=== PATIENT | female | born 1940 | race Asian ===

== ENCOUNTER 2022-08-31 08:33 | Inpatient (IN) | payer MEDICARE, OTHER ==
[~2022-08-31] VITALS: Ht 157.5 cm; Wt 53.5 kg
--- NOTE | 2022-08-31 08:38 | NUR ---
BIB [facility] FROM [place], WORSENING SOB SINCE MIDNIGHT AND HAS BEEN HAVING HIGH BLOOD PRESSURE. PT HAS HX OF HTN AND RESPIRATORY FAILURE. ATTACHED TO MONITOR. AWAITING MD JONES.
--- NOTE | 2022-08-31 09:09 | NUR ---
IV ESTABLISHED L HAND 20G. CULTURES AND LABS COLLECTED AND SENT. SALINE LOCK PLACED.
[2022-08-31] MEDS ORDERED: hydrALAZINE HCL IV 20 MG VIAL ONE (09:29)
[2022-08-31] MEDS ORDERED: hydrALAZINE HCL IV 20 MG VIAL IV ONE (09:30)
[2022-08-31 09:34] LABS: BASOPHILS # (AUTO) 0.1 K/uL (0.0-0.2); EOSINOPHILS % (AUTO) 1.5 % (0.0-6.0); HEMATOCRIT 29 % (33-45); HEMOGLOBIN 9.4 g/dL (11.5-14.8); LYMPHOCYTES # (AUTO) 0.9 K/uL (0.8-4.8); LYMPHOCYTES % (AUTO) 15.3 % (20.0-44.0); MEAN CORPUSCULAR HGB CONC 33 g/dl (31.0-36.0); MEAN CORPUSCULAR VOLUME 99 fL (82-100); MONOCYTES # (AUTO) 0.5 K/uL (0.1-1.30); MONOCYTES % (AUTO) 8.5 % (2.0-12.0); NEUTROPHILS # (AUTO) 4.2 K/uL (1.8-8.9); NEUTROPHILS % (AUTO) 73.7 % (43.0-81.0); PLATELET COUNT (AUTO) 198 K/uL (150-450); RED BLOOD CELL COUNT(AUTO) 2.91 MIL/uL (4.0-5.2); WHITE BLOOD COUNT (AUTO) 5.7 K/uL (4.3-11.0)
[2022-08-31 09:36] LABS: CALCIUM, SERUM 8.5 mg/dL (8.5-10.1); CARBON DIOXIDE 18 mmol/L (21-32); CHLORIDE 109 mmol/L (98-107); CREATININE 2.6 mg/dL (0.6-1.3); GLUCOSE 157 mg/dL (74-106); POTASSIUM 4.9 mmol/L (3.5-5.1); SODIUM SERUM 138 mmol/L (136-145); UREA NITROGEN, BLOOD 67 mg/dL (7-18)
[2022-08-31 09:58] LABS: ALANINE AMINOTRANSFERASE 17 U/L (12-78); ALBUMIN 2.6 g/dL (3.4-5.0); ALKALINE PHOSPHATASE 49 U/L (46-116); ASPARTATE AMINOTRANSFERASE 36 U/L (15-37); BILIRUBIN,DIRECT 0.1 mg/dL (0.0-0.2); BILIRUBIN,TOTAL 0.3 mg/dL (0.2-1.0); TOTAL PROTEIN, SERUM 6.3 g/dL (6.4-8.2)
--- NOTE | 2022-08-31 11:20 | NUR ---
INPATIENT MD AT BEDSIDE FOR EVAL
--- NOTE | 2022-08-31 12:05 | NUR ---
GOT BED 320-2 ADMITTING INFORMED.
--- NOTE | 2022-08-31 12:23 | NUR ---
RN NOTES RECEIVED REPORT FROM JUAN LUIS YANES RN
--- NOTE | 2022-08-31 12:23 | NUR ---
HANDOFF REPORT GIVEN TO GISEL ZHU FOR INPATIENT SERVICES.
[2022-08-31] MEDS ORDERED: ONDANSETRON HCL/PF 4 MG/2 ML VIAL IVP PRN (13:00)
[2022-08-31] MEDS ORDERED: MAG HYDROX/AL HYDROX/SIMETH 30 ML UDC PO PRN (13:00)
[2022-08-31] MEDS ORDERED: Z GUARD REMEDY 4 OZ OINT TP PRN (13:00)
[2022-08-31] MEDS ORDERED: MAGNESIUM HYDROXIDE 30 ML UDC PO PRN (13:00)
[2022-08-31] MEDS ORDERED: ACETAMINOPHEN 325 MG TABLET PO PRN (13:00)
[2022-08-31] MEDS ORDERED: FUROSEMIDE 20 MG/2 ML VIAL IV SCH (13:00)
--- NOTE | 2022-08-31 13:50 | NUR ---
BOX CAR BRACERMILLING/POLISHING OPERATOR NOTES PT ARRIVED VIA GURNEY AROUND 1340./ ALERT/ORIENTED X3, DENIES PAIN. ON O2 VIA NC @3L/MIN FOR SUPPORT. IV ACCESS ON LEFT HAND #20G SL, INTACT AND PATENT. NO SOB OR DISTRESS NOTED. SKIN INTACT. ALL DELONGINGS CHECKED AND RECONCILED. TFALL SAFETY MEASURES IN PLACED. BED LOCKED IN LOWEST POSITION, SIDE RAILS UP X2, CALL LIGHT WITHIN REACH. WILL CONTINUE TO MONITOR.
[2022-08-31] MEDS ORDERED: BUMETANIDE INJ 8 MG in IV NS 0.9% 48 ML IV ONE (14:00)
--- NOTE | 2022-08-31 14:00 | NUR ---
PT TRANSFERED Q/ ACLS PROTOCAL. PT REMAINED STABLE THROUGHT TRANSPORT. BEDSIDE NURSE PRESENT AT TIME OF TRANSFER.
--- NOTE | 2022-08-31 14:10 | NUR ---
RN NOTES RECEIVED CRITICAL LAB REPORT ON PT, TROP LEVEL [id number] FROM CHANTE MICHAEL.
[2022-08-31 14:22] LABS: THYROID STIMULATING HORMONE 1.408 uIU/mL (0.358-3.74)
[2022-08-31] MEDS: ATORVASTATIN 10 MG TABLET PO SCH (14:23)
[2022-08-31] MEDS: ASPIRIN 81 MG TAB.CHEW PO SCH (14:23)
[2022-08-31] MEDS ORDERED: HEPARIN SODIUM, PORCINE 5000 UNITS/1 ML VIAL IV ONE (14:30)
[2022-08-31] MEDS: HEPARIN INFUSION/D5W 500 ML IV PRN (15:00)
--- NOTE | 2022-08-31 15:00 | NUR ---
RN NOTES STARTED HEPARIN DRIP ON ACS PROTOCOL PER MD ORDER. BOLUS 3500 UNITS IV AND 750 UNITS HOURLY MAINTENANCE DOSE. NO SYMPTOMS OF BLEEDING. PT/PTT VERIFIED. WILL ORDER NEXT PT/PTT AT 2100. ORDER VERIFIED WITH AMBAR ZHU. WILL CONTINUE TO [facility].
[2022-08-31 16:00] VITALS: BP 163/80; TEMP 98; O2SAT 99
--- NOTE | 2022-08-31 18:51 | NUR ---
EXCAVATING SUPERVISOR CLOSING NOTES PT RESTING IN BED WITH DAUGHTER AT BEDSIDE. PT IS ALERT/ORIENTED X3, DENIES PAIN. ON O2 VIA NC @3L/MIN FOR SUPPORT. IV ACCESS ON LEFT HAND #20G SL, INTACT AND PATENT WITH BUMETANIDE RUNNING AT 10 ML/HR AND HEPARIN DRIP (ACS PROTOCOL) RUNNING AT 750 UNITS/HR ON RIGHT WRIST #22G. NO SOB OR DISTRESS NOTED. SKIN INTACT. ON TELE MONITOR SHOWING SINUS RHYTHM [address]. FALL SAFETY MEASURES IN PLACED. BED LOCKED IN LOWEST POSITION, SIDE RAILS UP X2, CALL LIGHT WITHIN REACH. WILL ENDORSE TO NEXT SHIFT.
[2022-08-31 19:00] VITALS: BP 166/75; TEMP 98.2; O2SAT 100
--- NOTE | 2022-08-31 19:30 | NUR ---
PACKAGING ASSOCIATE OPENING NOTE RECEIVED PATIENT IN BED, WITH HOB ELEVATED, ALERT AND ORIENTED X3, WITH DAUGHTER AT BEDSIDE. AFEBRILE AND NOT IN ANY FORM OF ACUTE DISTRESS. ON O2 INHALATION VIA NASAL CANNULA AT 3LPM. 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 WITH IV ACCES ON R WRIST 22G WITH ONGOING HEPARIN DRIP AT 15ML/HR. AND L HAND 20G RUNNING WITH BUMEX. SAFETY MEASURES IN PLACE. KEPT BED IN LOCKED AND IN LOW POSITION. SIDE RAILS UP X2. ADVISED TO USE THE CALL LIGHT WHEN IN NEED OF ASSISTANCE.
[2022-09-01] VITALS: BP 188/90; TEMP 98.2; O2SAT 98
[2022-09-01 05:56] LABS: BASOPHILS % (AUTO) 0.8 % (0.0-2.0); EOSINOPHILS % (AUTO) 3.3 % (0.0-6.0); HEMATOCRIT 28 % (33-45); HEMOGLOBIN 9.6 g/dL (11.5-14.8); LYMPHOCYTES # (AUTO) 1.3 K/uL (0.8-4.8); LYMPHOCYTES % (AUTO) 24.9 % (20.0-44.0); MEAN CORPUSCULAR HGB CONC 34 g/dl (31.0-36.0); MEAN CORPUSCULAR VOLUME 97 fL (82-100); MONOCYTES # (AUTO) 0.5 K/uL (0.1-1.30); MONOCYTES % (AUTO) 9.8 % (2.0-12.0); NEUTROPHILS # (AUTO) 3.2 K/uL (1.8-8.9); NEUTROPHILS % (AUTO) 61.2 % (43.0-81.0); PLATELET COUNT (AUTO) 194 K/uL (150-450); RED BLOOD CELL COUNT(AUTO) 2.91 MIL/uL (4.0-5.2); WHITE BLOOD COUNT (AUTO) 5.3 K/uL (4.3-11.0)
[2022-09-01 06:18] LABS: ALANINE AMINOTRANSFERASE 18 U/L (12-78); ALBUMIN 2.5 g/dL (3.4-5.0); ALKALINE PHOSPHATASE 51 U/L (46-116); ASPARTATE AMINOTRANSFERASE 61 U/L (15-37); BILIRUBIN,TOTAL 0.4 mg/dL (0.2-1.0); CARBON DIOXIDE 20 mmol/L (21-32); CHLORIDE 111 mmol/L (98-107); CREATININE 2.5 mg/dL (0.6-1.3); GLUCOSE 122 mg/dL (74-106); MAGNESIUM 1.8 mg/dL (1.8-2.4); PHOSPHORUS 5.8 mg/dL (2.5-4.9); POTASSIUM 4.5 mmol/L (3.5-5.1); SODIUM SERUM 144 mmol/L (136-145); TOTAL PROTEIN, SERUM 6.2 g/dL (6.4-8.2); UREA NITROGEN, BLOOD 60 mg/dL (7-18)
--- NOTE | 2022-09-01 06:30 | NUR ---
HUMAN RESOURCE ADVISER CLOSING NOTE PATIENT IN BED, WITH HOB ELEVATED, ASLEEP BUT EASY TO AROUSE AND RESPONSIVE. ALERT AND ORIENTED X3. AFEBRILE AND NOT IN ANY FORM OF ACUTE DISTRESS. ON O2 INHALATION VIA NASAL CANNULA AT 3LPM. ON TELE MONITORING WITH CURRENT READING OF SR 79. WITH LEFT BBB. WITH IV ACCES ON R WRIST 22G WITH ONGOING HEPARIN DRIP AT 15ML/HR. AND L HAND 20G-SL. MEDICATED ORDERED. MONITORED FOR ANY S/SX. OF BLEEDING. SAFETY MEASURES IN PLACE. KEPT BED IN LOCKED AND IN LOW POSITION. SIDE RAILS UP X2. ADVISED TO USE THE CALL LIGHT WHEN IN NEED OF ASSISTANCE. ALL NURSING NEEDS ATTENDED. ENDORSED TO INCOMING SHIFT FOR CONTINUITY OF CARE.
--- NOTE | 2022-09-01 06:50 | NUR ---
PROJECT CONTROLS SCHEDULER NOTE RECEIVED A CRITICAL RESULT FROM LAB RE. LATEST TROPONIN LEVEL OF PATIENT THAT WENT [place] FROM 17893 YESTERDAY TO . IMMEDIATELY NOTIFIED HOSPITALIST OCCUPATIONAL THERAPY SUPERVISOR DRAWING BOX TENDER DENISE AND AWAITING FOR RESPONSE. PATIENT'S LATEST PTT IS 46.1 AND IS CURRENTLY ON HEPARIN DRIP 750 UNITS/HR. ENDORSED TO INCOMING SHIFT FOR CONTINUITY OF CARE.
--- NOTE | 2022-09-01 07:32 | NUR ---
BRIDGE BUILDER OPENING NOTE RECEIVED PATIENT IN BED, WITH HOB ELEVATED, A/O X3, WITH DAUGHTER AT BEDSIDE. AFEBRILE AND NOT IN ANY FORM OF ACUTE DISTRESS. ON O2 INHALATION VIA NC AT 3LPM. ON TELE MONITORING WITH CURRENT READING OF SR 79 . WITH IV ACCES ON R WRIST 22G WITH ONGOING HEPARIN DRIP AT 15ML/HR . SAFETY MEASURES IN PLACE. KEPT BED IN LOCKED AND IN LOW POSITION. SIDE RAILS UP X2. ADVISED TO USE THE CALL LIGHT WHEN IN NEED OF ASSISTANCE. WILL CONTINUE TO MONITOR
[2022-09-01 08:00] VITALS: BP 136/94; TEMP 97.5; O2SAT 100
[2022-09-01] MEDS: ASPIRIN 81 MG TAB.CHEW PO SCH (09:30)
[2022-09-01] MEDS: ATORVASTATIN 10 MG TABLET PO SCH (09:30)
[2022-09-01] MEDS: hydrALAZINE HCL 50 MG TABLET PO SCH ×3 (09:34→17:18)
[2022-09-01] MEDS: NITROGLYCERIN 30 GM TUBE TP SCH ×2 (09:35→21:12)
[2022-09-01] MEDS: METOPROLOL TARTRATE 25 MG TABLET PO SCH ×2 (11:42→21:12)
[2022-09-01] MEDS ORDERED: MAGN400O6 PO (11:55)
[2022-09-01] MEDS ORDERED: AMLO5TAB4 PO (11:55)
[2022-09-01] MEDS ORDERED: SENN-261 PO (11:55)
[2022-09-01] MEDS ORDERED: DOCU100T2 PO (11:55)
[2022-09-01] MEDS ORDERED: PYRI25TA3 PO (11:55)
[2022-09-01] MEDS ORDERED: ASPI-1169 PO (11:55)
[2022-09-01] MEDS ORDERED: FERR325T23 PO (11:55)
[2022-09-01] MEDS ORDERED: FURO-144 PO (11:55)
[2022-09-01] MEDS ORDERED: ISON300T19 PO (11:55)
[2022-09-01] MEDS ORDERED: MIRT-90 PO (11:55)
[2022-09-01] MEDS ORDERED: ISOS120T13 PO (11:55)
[2022-09-01] MEDS ORDERED: CYAN10006 IM (11:55)
[2022-09-01] MEDS ORDERED: CETI-90 PO (11:55)
[2022-09-01] MEDS ORDERED: DOXA1TAB2 PO (11:55)
[2022-09-01] MEDS ORDERED: BISA10SU11 RC (11:55)
[2022-09-01] MEDS ORDERED: SITA50TA PO (11:55)
[2022-09-01] MEDS ORDERED: CARV25TA2 PO (11:55)
[2022-09-01] MEDS ORDERED: MEGE400O4 PO (11:55)
[2022-09-01] MEDS ORDERED: HYDR-4077 PO (11:55)
[2022-09-01] MEDS ORDERED: RIFA300C4 PO (11:55)
[2022-09-01] MEDS ORDERED: NA P133E RC (11:55)
[2022-09-01 16:00] VITALS: BP 162/80; TEMP 97.9; O2SAT 100
--- NOTE | 2022-09-01 19:36 | NUR ---
BEVELLER OPERATOR CLOSING NOTE PATIENT IN BED, WITH HOB ELEVATED, A/O X3, WITH DAUGHTER AT BEDSIDE. AFEBRILE AND NOT IN ANY FORM OF ACUTE DISTRESS. ON O2 INHALATION VIA NC AT 3LPM. ON TELE MONITORING WITH CURRENT READING OF SR 80 . WITH IV ACCES ON R WRIST 22G WITH ONGOING HEPARIN DRIP AT 15ML/HR . ALL DUE MEDS GIVEN ORDERED , SAFETY MEASURES IN PLACE. KEPT BED IN LOCKED AND IN LOW POSITION. SIDE RAILS UP X2. ADVISED TO USE THE CALL LIGHT WHEN IN NEED OF ASSISTANCE. ENDORSED TO NEXT SHIFT
--- NOTE | 2022-09-01 19:58 | NUR ---
COMPRESSOR REPAIRER OPENING NOTES RECEIVED PATIENT AWAKE SITTING IN BED, WITH DAUGHTER ON BEDSIDE. A/O X 3. ON NASAL CANNULA AT 2L, TOLERATING WELL WITH NO SIGNS OF RESPIRATORY DISTRESS. ON TELE MONITORING WITH A CURRENT READING OF SINUS RHYTHM WITH A HEART RATE OF 80. NO CARDIAC DISTRESS NOTED AT THIS TIME.ON HEPARIN DRIP AR R WRIST #22G.IVF ON L HAND #20G, INTACT AND PATENT. SAFETY MEASURES IN PLACE.WILL CONTINUE TO MONITOR.
[2022-09-01 20:00] VITALS: BP 176/78; TEMP 98.1; O2SAT 100
[2022-09-01] MEDS: HEPARIN INFUSION/D5W 500 ML IV PRN (22:06)
--- NOTE | 2022-09-01 22:30 | NUR ---
RN NOTE BP MEDICATIONS GIVEN ONE HOUR AGO BUT PT CURRENTLY REFUSING F/U BP. PT STATED SHE JUST WANTED TO SLEEP. MADE COMFORTABLE IN BED. ALL NEEDS MET AT THIS TIME.
[2022-09-01 23:55] LABS: BILIRUBIN,URINE NEGATIVE (NEGATIVE); COLOR,URINE YELLOW (YELLOW); LEUKOCYTE ESTERASE ,URINE NEGATIVE (NEGATIVE); NITRITE, URINE NEGATIVE (NEGATIVE); PROTEIN,URINE 3+ mg/dl (NEGATIVE); UGLUCOSE TRACE mg/dL (NEGATIVE); UROBILINOGEN,URINE 0.2 EU/dL (0.2)
[2022-09-02] VITALS: BP 138/61; TEMP 98.3; O2SAT 100
[2022-09-02 00:17] LABS: CREATININE, URINE 66.5 MG/DL (30.0-125.0)
[2022-09-02 00:31] LABS: BACTERIA,URINE Rare /HPF (None Seen); RBC,URINE 0-2 /HPF (0-2); SQUAMOUS EPITHELIAL CELL,UR Few /HPF (None Seen); WBC,URINE NONE SEEN /HPF (0-3)
[2022-09-02 01:21] LABS: EOSINOPHIL,URINE None Seen
[2022-09-02 01:22] LABS: YEAST,URINE Rare /HPF (None Seen)
[2022-09-02 04:00] VITALS: BP 160/69; TEMP 98; O2SAT 100
[2022-09-02 04:13] LABS: BASOPHILS # (AUTO) 0.1 K/uL (0.0-0.2); BASOPHILS % (AUTO) 1.9 % (0.0-2.0); EOSINOPHILS % (AUTO) 8.5 % (0.0-6.0); HEMATOCRIT 26 % (33-45); HEMOGLOBIN 8.8 g/dL (11.5-14.8); LYMPHOCYTES # (AUTO) 0.7 K/uL (0.8-4.8); LYMPHOCYTES % (AUTO) 17.7 % (20.0-44.0); MEAN CORPUSCULAR HGB CONC 34 g/dl (31.0-36.0); MEAN CORPUSCULAR VOLUME 96 fL (82-100); MONOCYTES # (AUTO) 0.3 K/uL (0.1-1.30); MONOCYTES % (AUTO) 7.6 % (2.0-12.0); NEUTROPHILS # (AUTO) 2.6 K/uL (1.8-8.9); NEUTROPHILS % (AUTO) 64.3 % (43.0-81.0); PLATELET COUNT (AUTO) 172 K/uL (150-450); RED BLOOD CELL COUNT(AUTO) 2.72 MIL/uL (4.0-5.2); WHITE BLOOD COUNT (AUTO) 4.1 K/uL (4.3-11.0)
[2022-09-02 04:34] LABS: ALANINE AMINOTRANSFERASE 19 U/L (12-78); ALBUMIN 2.3 g/dL (3.4-5.0); ALKALINE PHOSPHATASE 47 U/L (46-116); ASPARTATE AMINOTRANSFERASE 30 U/L (15-37); BILIRUBIN,TOTAL 0.2 mg/dL (0.2-1.0); CALCIUM, SERUM 8.8 mg/dL (8.5-10.1); CARBON DIOXIDE 20 mmol/L (21-32); CHLORIDE 109 mmol/L (98-107); CREATININE 2.3 mg/dL (0.6-1.3); GLUCOSE 118 mg/dL (74-106); MAGNESIUM 1.9 mg/dL (1.8-2.4); PHOSPHORUS 6.5 mg/dL (2.5-4.9); POTASSIUM 4.5 mmol/L (3.5-5.1); SODIUM SERUM 140 mmol/L (136-145); TOTAL PROTEIN, SERUM 5.7 g/dL (6.4-8.2); UREA NITROGEN, BLOOD 61 mg/dL (7-18)
--- NOTE | 2022-09-02 05:00 | NUR ---
RN NOTE PT LABS CAME BACK. PT 10.3 INR 0.98 AND PTT 46.6. PER HEPARIN PROTOCOL, NO CHANGES TO INFUSION. CHART UPDATED. CHARGE NURSE MANJINDER CASTILLO.
--- NOTE | 2022-09-02 06:45 | NUR ---
BAGGAGE SCREENER CLOSING NOTE PT AWAKE IN BED. A/O X 3 AND ABLE TO MAKE NEEDS KNOWN. PT ON O2 @ 2 LPM VIA NC, TOLERATING WELL. NO SOB OR S/S OF RESPIRATORY DISTRESS. BREATHING EVEN AND UNLABORED. ON EXTERNAL MEDICAL VIDEOGRAPHER READING SR 75 BPM. IV ACCESS R WRIST #22 AND L HAND #20G, RUNNING HEPARIN DRIP @ 750 UNITS/HOUR, INTACT AND PATENT. ALL DUE MEDS GIVEN ORDERED. KEPT CLEAN AND DRY. SAFETY PRECAUTIONS IN PLACE AT ALL TIMES. BED IN LOWEST LOCKED POSITION, HOB ELEVATED, SIDE RAILS UP X2, CALL LIGHT AND TABLE WITHIN REACH. ALL NEEDS MET AT THIS TIME AND WILL ENDORSE TO ONCOMING NURSE FOR PEYTON.
[2022-09-02 07:30] VITALS: BP 175/77; TEMP 98.6; O2SAT 100
--- NOTE | 2022-09-02 07:43 | NUR ---
DIRECTOR OF SECURITY OPENING NOTE Patient in bed, awake. A/O x 3, able to make needs known. On O2 at 2 LPM via NC, no SOB or s/s of distress noted. IV access on Right wrist infusing Heaprin drip at 750 U/hr and Left hand #20 SL, intact and patent. Safety precaution in place: bed in low, locked position; siderails up x 2; call light within reach. Will continue to monitor.
[2022-09-02] MEDS: ASPIRIN 81 MG TAB.CHEW PO SCH (08:09)
[2022-09-02] MEDS: hydrALAZINE HCL 50 MG TABLET PO SCH ×4 (08:09→17:36)
[2022-09-02] MEDS: ATORVASTATIN 10 MG TABLET PO SCH (08:09)
[2022-09-02] MEDS: METOPROLOL TARTRATE 25 MG TABLET PO SCH ×2 (08:09→21:07)
[2022-09-02] MEDS: NITROGLYCERIN 30 GM TUBE TP SCH (08:10)
--- NOTE | 2022-09-02 09:00 | NUR ---
RN NOTE Hydralazine PO already given to patient.
[2022-09-02] MEDS: AMLODIPINE BESYLATE 5 MG TABLET PO SCH (09:09)
[2022-09-02] MEDS: ISOSORBIDE DINITRATE (20MG) 20 MG TABLET PO SCH ×2 (09:10→17:36)
[2022-09-02] MEDS: HEPARIN SODIUM, PORCINE 5000 UNITS/1 ML VIAL SQ SCH ×2 (09:11→21:08)
[2022-09-02 11:30] VITALS: BP 134/61; TEMP 98.1; O2SAT 99
[2022-09-02 16:00] VITALS: BP 160/68; TEMP 98.7; O2SAT 99
--- NOTE | 2022-09-02 18:47 | NUR ---
PROGRAM SCHEDULER CLOSING NOTE Patient sitting in chair. A/O x 3, able to make needs known. Stable on O2 at 2 LPM via NC, no SOB or s/s of distress noted. IV access on Right wrist and Left hand #20 SL, intact and patent. All needs attended to. Due meds given. Consent obtained for NS Myocardial test tomorrow and placed in chart. Safety precaution in place: bed in low, locked position; siderails up x 2; call light within reach. Will endorse to night auditor nurse for PEYTON. Addendum: 09/02/22 at 1856 by MARCUS RODRÍGUEZ RN ADD: On external monitoring showing SR, HR on the 80's.
--- NOTE | 2022-09-02 19:21 | NUR ---
STUDIO OPERATION ENGINEER OPENING NOTE RECEIVED PT AWAKE IN BED. A/O X 3 AND ABLE TO MAKE NEEDS KNOWN. PT ON O2 @ 2 LPM VIA NC, TOLERATING WELL. NO SOB OR S/S OF RESPIRATORY DISTRESS. BREATHING EVEN AND UNLABORED. ON EXTERNAL ORTHOPEDIC PODIATRIST READING SR 92 BPM. IV ACCESS R WRIST #22 AND L HAND #20G SL, INTACT AND PATENT. SAFETY PRECAUTIONS IN PLACE. BED IN LOWEST LOCKED POSITION, HOB ELEVATED, SIDE RAILS UP X2, CALL LIGHT AND TABLE WITHIN REACH. ALL NEEDS MET AT THIS TIME.
[2022-09-02 20:57] VITALS: BP 164/84; TEMP 98.3; O2SAT 100
[2022-09-03 00:45] VITALS: BP 154/72; TEMP 98.2; O2SAT 100
[2022-09-03 05:52] LABS: BASOPHILS % (AUTO) 0.7 % (0.0-2.0); EOSINOPHILS % (AUTO) 4.9 % (0.0-6.0); HEMATOCRIT 26 % (33-45); HEMOGLOBIN 8.7 g/dL (11.5-14.8); LYMPHOCYTES # (AUTO) 1.3 K/uL (0.8-4.8); LYMPHOCYTES % (AUTO) 30.9 % (20.0-44.0); MEAN CORPUSCULAR HGB CONC 33 g/dl (31.0-36.0); MEAN CORPUSCULAR VOLUME 96 fL (82-100); MONOCYTES # (AUTO) 0.5 K/uL (0.1-1.30); MONOCYTES % (AUTO) 11.7 % (2.0-12.0); NEUTROPHILS # (AUTO) 2.2 K/uL (1.8-8.9); NEUTROPHILS % (AUTO) 51.8 % (43.0-81.0); PLATELET COUNT (AUTO) 168 K/uL (150-450); RED BLOOD CELL COUNT(AUTO) 2.69 MIL/uL (4.0-5.2); WHITE BLOOD COUNT (AUTO) 4.3 K/uL (4.3-11.0)
[2022-09-03 06:11] LABS: CARBON DIOXIDE 23 mmol/L (21-32); CHLORIDE 111 mmol/L (98-107); CREATININE 2.5 mg/dL (0.6-1.3); GLUCOSE 127 mg/dL (74-106); MAGNESIUM 1.9 mg/dL (1.8-2.4); PHOSPHORUS 5.3 mg/dL (2.5-4.9); POTASSIUM 4.7 mmol/L (3.5-5.1); SODIUM SERUM 141 mmol/L (136-145); UREA NITROGEN, BLOOD 54 mg/dL (7-18)
--- NOTE | 2022-09-03 06:37 | NUR ---
PORTFOLIO LEAD CLOSING NOTE PT AWAKE IN BED. A/O X 3 AND ABLE TO MAKE NEEDS KNOWN. PT ON O2 @ 2 LPM VIA NC, TOLERATING WELL. NO SOB OR S/S OF RESPIRATORY DISTRESS. BREATHING EVEN AND UNLABORED. ON EXTERNAL LEGAL TRANSCRIBER READING SR 75 BPM. IV ACCESS R WRIST #22 AND L HAND #20G SL, INTACT AND PATENT. ALL DUE MEDS GIVEN ORDERED. KEPT CLEAN AND DRY. KEPT NPO AFTER MIDNIGHT. SAFETY PRECAUTIONS IN PLACE AT ALL TIMES. BED IN LOWEST LOCKED POSITION, HOB ELEVATED, SIDE RAILS UP X2, CALL LIGHT AND TABLE WITHIN REACH. ALL NEEDS MET AT THIS TIME AND WILL ENDORSE TO ONCOMING NURSE FOR PEYTON.
[2022-09-03 07:30] VITALS: BP 197/86; TEMP 97.8; O2SAT 100
--- NOTE | 2022-09-03 07:35 | NUR ---
ms rn received on bed, awake,alert,oriented x4,not in any form of distress, respirations even and unlabored, on room air w/ adequate saturation, patient is npo at this time, for stress test for today, denies pain at this time, all needs attended.
[2022-09-03] MEDS ORDERED: REGADENOSON 0.4 MG/5 ML DISP.SYRIN IVP ONE (08:00)
[2022-09-03] MEDS: ATORVASTATIN 10 MG TABLET PO SCH (10:08)
[2022-09-03] MEDS: hydrALAZINE HCL 50 MG TABLET PO SCH ×3 (10:08→17:48)
[2022-09-03] MEDS: METOPROLOL TARTRATE 25 MG TABLET PO SCH ×2 (10:09→20:52)
[2022-09-03] MEDS: ISOSORBIDE DINITRATE (20MG) 20 MG TABLET PO SCH ×2 (10:09→17:49)
[2022-09-03] MEDS: AMLODIPINE BESYLATE 5 MG TABLET PO SCH (10:09)
[2022-09-03] MEDS: ASPIRIN 81 MG TAB.CHEW PO SCH (10:09)
[2022-09-03] MEDS: HEPARIN SODIUM, PORCINE 5000 UNITS/1 ML VIAL SQ SCH ×2 (10:10→20:52)
--- NOTE | 2022-09-03 12:00 | NUR ---
ms rn stress test done, will monitor patient.
[2022-09-03 16:00] VITALS: BP 160/82; TEMP 98.1; O2SAT 99
--- NOTE | 2022-09-03 18:20 | NUR ---
ms rn on bed. no distress noted, can go to the bathroom independently, will endorse to hourly shift for amira.
--- NOTE | 2022-09-03 19:30 | NUR ---
CLINICAL LABORATORY MEDICAL DIRECTOR OPENING NOTE RECEIVED PT AWAKE IN BED. A/O X 3 AND ABLE TO MAKE NEEDS KNOWN, DAUGHTER AT BEDSIDE. PT ON O2 @ 2 LPM VIA NC, TOLERATING WELL. NO SOB OR S/S OF RESPIRATORY DISTRESS. BREATHING EVEN AND UNLABORED. ON EXTERNAL METAL SANDER AND FINISHER READING SR 72 BPM. IV ACCESS L HAND #20G SL, INTACT AND PATENT. SAFETY PRECAUTIONS IN PLACE. BED IN LOWEST LOCKED POSITION, HOB ELEVATED, SIDE RAILS UP X2, CALL LIGHT AND TABLE WITHIN REACH. ALL NEEDS MET AT THIS TIME.
[2022-09-03 20:00] VITALS: BP 158/76; TEMP 97.6; O2SAT 99
[2022-09-04] VITALS: BP 151/71; TEMP 97.6; O2SAT 99
[2022-09-04 04:00] VITALS: BP_SYST 154; BP_SYST 175; BP_DIAS 78; BP_DIAS 80; TEMP 97.7; TEMP 99; O2SAT 100; O2SAT 96
[2022-09-04 05:57] LABS: CARBON DIOXIDE 18 mmol/L (21-32); CHLORIDE 111 mmol/L (98-107); CREATININE 2.3 mg/dL (0.6-1.3); GLUCOSE 129 mg/dL (74-106); POTASSIUM 4.7 mmol/L (3.5-5.1); SODIUM SERUM 139 mmol/L (136-145); UREA NITROGEN, BLOOD 52 mg/dL (7-18)
--- NOTE | 2022-09-04 06:30 | NUR ---
ARCHITECTURE PROFESSOR CLOSING NOTE PT AWAKE IN BED. A/O X 3 AND ABLE TO MAKE NEEDS KNOWN. PT ON O2 @ 2 LPM VIA NC, TOLERATING WELL. NO SOB OR S/S OF RESPIRATORY DISTRESS. BREATHING EVEN AND UNLABORED. ON EXTERNAL NEUROLOGY HOSPITALIST READING SR 70 BPM. IV ACCESS L HAND #20G SL, INTACT AND PATENT. ALL DUE MEDS GIVEN ORDERED. KEPT CLEAN AND DRY. SAFETY PRECAUTIONS IN PLACE AT ALL TIMES. BED IN LOWEST LOCKED POSITION, HOB ELEVATED, SIDE RAILS UP X2, CALL LIGHT AND TABLE WITHIN REACH. ALL NEEDS MET AT THIS TIME AND WILL ENDORSE TO ONCOMING NURSE FOR PEYTON.
--- NOTE | 2022-09-04 07:19 | NUR ---
RETAIL CLIENT SOLUTIONS ANALYST OPENING NOTE RECEIVED PATIENT IN CHAIR AWAKE, ALERT AND ORIENTED X 4, ABLE TO MAKE NEEDS KNOWN. PATIENT ON ROOM AIR WITH EQUAL AND UNLABORED BREATHING WITH NO RESPIRATORY DISTRESS NOTED. ON EXTERNAL TRAIN DISPATCHER READING SR AT 60-70 BPM. WITH IV ACCESS ONT HE LEFT HAD G 20 ON SALINE LOCK, PATENT AND INTACT. SAFETY PRECAUTIONS IN PLACE. BED IN LOWEST LOCKED POSITION, HOB ELEVATED, SIDE RAILS UP X2, CALL LIGHT AND TABLE WITHIN REACH. WILL CONTINUE WITH PLAN OF CARE.
[2022-09-04 07:30] VITALS: BP 194/72; TEMP 98.1; O2SAT 72
--- NOTE | 2022-09-04 08:48 | NUR ---
PACKERHEAD MACHINE OPERATOR NOTE SEEN BY DR. MANN WITH ORDER TO DISCHARGE PATIENT. HEALTH TEACHING DONE REGARDING DISCHARGE AND DISCHARGE INSTRUCTIONS/ PROTOCOL. VERBALIZED UNDERSTANDING AND APPRECIATION. WILL CONTIUNE WITH PLAN OF CARE.
[2022-09-04] MEDS: METOPROLOL TARTRATE 25 MG TABLET PO SCH ×2 (09:09→21:07)
[2022-09-04] MEDS: ISOSORBIDE DINITRATE (20MG) 20 MG TABLET PO SCH ×2 (09:10→17:37)
[2022-09-04] MEDS: ASPIRIN 81 MG TAB.CHEW PO SCH (09:10)
[2022-09-04] MEDS: AMLODIPINE BESYLATE 5 MG TABLET PO SCH (09:10)
[2022-09-04] MEDS: ATORVASTATIN 10 MG TABLET PO SCH (09:10)
[2022-09-04] MEDS: hydrALAZINE HCL 50 MG TABLET PO SCH ×3 (09:13→17:37)
[2022-09-04] MEDS: HEPARIN SODIUM, PORCINE 5000 UNITS/1 ML VIAL SQ SCH ×2 (09:14→21:10)
--- NOTE | 2022-09-04 09:15 | NUR ---
COMPRESSOR OPERATOR NOTE RECHECKED BP MANUALLY. LATEST BP AT 188/76.
--- NOTE | 2022-09-04 10:15 | NUR ---
GREY PERCHER NOTE RECHECKED BP MANUALLY. LATEST BP 142/59
[2022-09-04] MEDS: ENSURE ENLIVE CHOC 237 ML CAN PO SCH (10:49)
[2022-09-04 15:44] VITALS: BP 194/72; TEMP 98; O2SAT 100
--- NOTE | 2022-09-04 19:00 | NUR ---
TRUCK MECHANIC NOTE PATIENT IN STABLE CONDITION. ENDORSED TO NEXT SHIFT FOR CONTINUITY OF CARE.
--- NOTE | 2022-09-04 19:30 | NUR ---
STRUCTURAL STEEL EQUIPMENT ERECTOR OPENING NOTES - RECEIVED PATIENT IN BED. A/O X4. BREATHING EVEN AND NON-LABORED, ON O2 AT 2LPM VIA NASAL CANULA. DENIES PAIN AT THIS TIME. HAS TELE MONITOR READING SINUS RHYTHM WITH PVC AT 70 BPM. HAS LEFT HAND IV ACCESS #20G AND SALINE LOCKED. NO S/S OF INFILTRATION NOTED. PATIENT AWARE THAT SHE WILL BE DISCHARGED SOON SHE IS CLEARED BY [facility]. SAFETY PRECAUTIONS IN PLACE: BED LOCKED AND IN LOW POSITION, SIDE RAILS UP X2, CALL LIGHT WITHIN REACH. WILL CONTINUE PLAN OF CARE.
[2022-09-04 19:46] VITALS: BP 175/80; TEMP 99; O2SAT 100
[2022-09-04 20:00] VITALS: BP 145/72; TEMP 98.1; O2SAT 98
[2022-09-05] VITALS: BP 155/80; TEMP 98; O2SAT 96
[2022-09-05 01:00] VITALS: BP 155/80; TEMP 98; O2SAT 96
[2022-09-05] MEDS: CLONIDINE HCL 0.1 MG TABLET PO PRN (02:25)
--- NOTE | 2022-09-05 02:26 | NUR ---
PRN CLONIDINE 0.1MG GIVEN SOON THE SENIOR INSIGHT MANAGER HANDED ME THE VITAL SIGNS SHEET.
[2022-09-05 04:00] VITALS: BP 135/68; TEMP 98; O2SAT 96; O2SAT 98
--- NOTE | 2022-09-05 07:11 | NUR ---
MARKETING TRAINEE CLOSING NOTES - PATIENT SITTING ON CHAIR, ABLE TO VERBALIZED NEEDS. PERIODS OF CONFUSION NOTED. NO SOB OR , CURRENTLY TOLERATING ROOM AIR WELL. NO C/O PAIN OR DISCOMFORT. AFEBRILE. TELE MONITOR SHOWS SINUS RHYTHM AT 61-81 BPM. LEFT HAND IV ACCESS INTACT, PATENT AND FLUSHING. ALL DUE MEDS GIVEN AND NEEDS ATTENDED. SAFETY PRECAUTIONS MAINTAINED. WILL ENDORSE TO AM RN FOR PEYTON.
--- NOTE | 2022-09-05 07:12 | NUR ---
GENERAL LOT ATTENDANT CLOSING NOTES - PATIENT SITTING ON CHAIR, ABLE TO VERBALIZED NEEDS. PERIODS OF CONFUSION NOTED. NO SOB OR , CURRENTLY TOLERATING ROOM AIR WELL. NO C/O PAIN OR DISCOMFORT. AFEBRILE. TELE MONITOR SHOWS SINUS RHYTHM AT 70 BPM. LEFT HAND IV ACCESS C/D/I. SAFETY PRECAUTIONS MAINTAINED. WILL CONTINUE TO MONITOR FOR PEYTON. Addendum: 09/05/22 at 0920 by RUBY GAN JR, RN OPENING
[2022-09-05 07:30] VITALS: BP 137/88; TEMP 98.2; O2SAT 100
[2022-09-05 07:40] LABS: HEMOGLOBIN 8.4 g/dL (11.5-14.8)
[2022-09-05 08:01] LABS: CALCIUM, SERUM 8.7 mg/dL (8.5-10.1); CARBON DIOXIDE 19 mmol/L (21-32); CHLORIDE 112 mmol/L (98-107); CREATININE 2.3 mg/dL (0.6-1.3); GLUCOSE 147 mg/dL (74-106); POTASSIUM 4.8 mmol/L (3.5-5.1); SODIUM SERUM 140 mmol/L (136-145); UREA NITROGEN, BLOOD 50 mg/dL (7-18)
[2022-09-05] MEDS ORDERED: EPOETIN ALFA-EPBX 4,000 UNIT/ML VIAL SQ SCH (09:00)
[2022-09-05] MEDS ORDERED: FUROSEMIDE 20 MG/2 ML VIAL IV SCH (09:00)
[2022-09-05] MEDS: ASPIRIN 81 MG TAB.CHEW PO SCH (09:00)
[2022-09-05] MEDS: HEPARIN SODIUM, PORCINE 5000 UNITS/1 ML VIAL SQ SCH ×2 (09:02→21:09)
[2022-09-05] MEDS: AMLODIPINE BESYLATE 5 MG TABLET PO SCH (09:04)
[2022-09-05] MEDS: ATORVASTATIN 10 MG TABLET PO SCH (09:04)
[2022-09-05] MEDS: hydrALAZINE HCL 50 MG TABLET PO SCH ×3 (09:04→16:27)
[2022-09-05] MEDS: METOPROLOL TARTRATE 25 MG TABLET PO SCH ×2 (09:05→21:08)
[2022-09-05] MEDS: ISOSORBIDE DINITRATE (20MG) 20 MG TABLET PO SCH ×2 (09:06→16:28)
[2022-09-05] MEDS: ENSURE ENLIVE CHOC 237 ML CAN PO SCH (09:06)
[2022-09-05] MEDS: EPOETIN ALFA-EPBX 2,000 UNIT/ML VIAL SQ SCH (14:27)
[2022-09-05 16:49] VITALS: BP 141/50; TEMP 98.2; O2SAT 99
--- NOTE | 2022-09-05 18:32 | NUR ---
CHILDCARE ADMINISTRATOR CLOSING NOTES - PATIENT RESTING, ABLE TO VERBALIZED NEEDS WITH PERIODS OF CONFUSION NOTED. NO SOB OR , CURRENTLY TOLERATING ROOM AIR WELL. NO C/O PAIN OR DISCOMFORT. AFEBRILE. TELE MONITOR SHOWS SINUS RHYTHM AT 72 BPM. LEFT HAND IV ACCESS C/D/I. ALL DUE MEDS GIVEN AND NEEDS ATTENDED. SAFETY PRECAUTIONS MAINTAINED. WILL BE ENDORSED TO PM SHIFT NURSE FOR PEYTON.
--- NOTE | 2022-09-05 19:30 | NUR ---
FIRE CONTROL MECHANIC OPENING NOTES RECEIVED PT SITTING IN CHAIR, WATCHING TV AT THIS TIME. A/O X4, ABLE TO MAKE NEEDS KNOWN, APPEARS COMFORTABLE. ON RA WITH NO SOB OR DISTRESS NOTED. DENIES PAIN AT THIS TIME. AFEBRILE. ON CIVILIAN JAIL OFFICER SHOWS SINUS RHYTHM AT 72 BPM. L HAND #20G SL, PATENT, INTACT, FLUSHING WELL. SAFETY PRECAUTIONS IN PLACE: BED LOCKED AND IN LOW POSITION, SIDE RAILS UP X3, CALL LIGHT AND TRAY TABLE WITHIN REACH. WILL CONTINUE TO MONITOR AND ASSIST.
[2022-09-05 20:48] VITALS: BP 170/75; TEMP 97.9; O2SAT 99
[2022-09-06] VITALS (7 sets, daily range): BP systolic 127–166; BP diastolic 66–94; TEMP 97.7–99; O2SAT 93–99
[2022-09-06] MEDS: CLONIDINE HCL 0.1 MG TABLET PO PRN (01:30)
--- NOTE | 2022-09-06 07:00 | NUR ---
AUTO TECHNICIAN CLOSING NOTES PT SITTING IN CHAIR, WATCHING TV AT THIS TIME. A/O X4, ABLE TO MAKE NEEDS KNOWN, APPEARS COMFORTABLE. STABLE ON RA WITH NO SOB OR DISTRESS NOTED. DENIES PAIN AT THIS TIME. AFEBRILE. ON PELLET MILL OPERATOR SHOWS SINUS RHYTHM AT 64 BPM. L HAND #20G SL, PATENT, INTACT, FLUSHING WELL. ALL CARE PROVIDED AND MEDS TOLERATED WELL. SAFETY PRECAUTIONS MAINTAINED: BED LOCKED AND IN LOW POSITION, SIDE RAILS UP X3, CALL LIGHT AND TRAY TABLE WITHIN REACH. WILL ENDORSE PEYTON TO DAY SHIFT NURSE.
--- NOTE | 2022-09-06 07:24 | NUR ---
UNDERWRITER MORTGAGE LOAN OPENING NOTE RECEIVED PATIENT IN CHAIR AWAKE, ALERT AND ORIENTED X 4, ABLE TO MAKE NEEDS KNOWN. PATIENT ON ROOM AIR WITH EQUAL AND UNLABORED BREATHING WITH NO RESPIRATORY DISTRESS NOTED. ON EXTERNAL REPLANTER READING SR AT 65 BPM. WITH IV ACCESS ONT HE LEFT HAD G 20 ON SALINE LOCK, PATENT AND INTACT. DENIES DISCOMFORT AT THIS TIME. SAFETY PRECAUTIONS IN PLACE. BED IN LOWEST LOCKED POSITION, HOB ELEVATED, SIDE RAILS UP X2, CALL LIGHT AND TABLE WITHIN REACH. WILL CONTINUE WITH PLAN OF CARE.
[2022-09-06] MEDS: HEPARIN SODIUM, PORCINE 5000 UNITS/1 ML VIAL SQ SCH ×3 (09:04→21:09)
[2022-09-06] MEDS: AMLODIPINE BESYLATE 5 MG TABLET PO SCH (09:05)
[2022-09-06] MEDS: hydrALAZINE HCL 50 MG TABLET PO SCH ×3 (09:05→17:00)
[2022-09-06] MEDS: ASPIRIN 81 MG TAB.CHEW PO SCH (09:05)
[2022-09-06] MEDS: ATORVASTATIN 10 MG TABLET PO SCH (09:06)
[2022-09-06] MEDS: ISOSORBIDE DINITRATE (20MG) 20 MG TABLET PO SCH ×2 (09:06→17:00)
[2022-09-06] MEDS: METOPROLOL TARTRATE 25 MG TABLET PO SCH ×2 (09:06→21:08)
[2022-09-06] MEDS: ENSURE ENLIVE CHOC 237 ML CAN PO SCH (09:18)
[2022-09-06] MEDS ORDERED: RIFA300C4 PO (16:08)
--- NOTE | 2022-09-06 18:47 | NUR ---
CUSTOMER LEADER CLOSING NOTES PATIENT RESTING IN HER BED, ALERT AND ORIENTED X 4, ABLE TO MAKE NEEDS KNOWN. TOLERATING ON ROOM AIR, NO SHORTNESS OF BREATHS NOTED. ON TELE MONITOR READING SR AT 67 BPM. WITH IV ACCESS ONT HE LEFT HAD G 20 ON SALINE LOCK, PATENT AND INTACT. DENIES DISCOMFORT AT THIS TIME. SAFETY PRECAUTIONS IN PLACE. BED IN LOWEST LOCKED POSITION, HOB ELEVATED, SIDE RAILS UP X2, CALL LIGHT AND TABLE WITHIN REACH. WILL CONTINUE TO MONITOR
--- NOTE | 2022-09-06 19:32 | NUR ---
SERVICE TECH OPENING NOTE RECEIVED PATIENT IN BED AWAKED AOX 4,TAGALOG AND GREEK SPEAKING,ABLE TO MAKE NEEDS KNOWN. PATIENT ON ROOM AIR STAN WELL SAT 98% NO SOB/DISTRESS NOTED,ON EXTERNAL SPECIAL EVENTS FUNDRAISER READING SR AT 68 BPM.NO COMPLAIN OF PAIN/DISCOMFORT AT THIS TIME, WITH IV ACCESS ONT HE LEFT HAD G 20 ON SALINE LOCK, PATENT AND INTACT. SAFETY PRECAUTIONS IN PLACE. BED IN LOWEST LOCKED POSITION, HOB ELEVATED, SIDE RAILS UP X2, CALL LIGHT AND TABLE WITHIN REACH. WILL CONTINUE WITH PLAN OF CARE.
--- NOTE | 2022-09-06 21:14 | NUR ---
RN NOTE; PATIENT REFUSED 2100=HEPARIN EXPLAINED BENEFITS X3.
[2022-09-07] VITALS (12 sets, daily range): BP systolic 137–187; BP diastolic 62–85; TEMP 84.4–98.5; O2SAT 97–99
--- NOTE | 2022-09-07 06:45 | NUR ---
RN NOTE; PT COMPLAINED HAVING TROUBLE BREATHING,CHECK O2SAT 99%,GIVE O2 2L VIA NC.JACKIE,ANKIT WALKER.CALLED ME TO ORDER ALBUTEROL AND ATROVENT Q4HR.CARRIED OUT.
--- NOTE | 2022-09-07 06:53 | NUR ---
MANAGER NC CLOSING NOTE; PATIENT IN BED AWAKED AOX 4,TAGALOG AND URDU SPEAKING,ABLE TO MAKE NEEDS KNOWN. PATIENT ON ROOM AIR STAN WELL SAT 99% NO SOB/DISTRESS NOTED,ON EXTERNAL WARRANTY COORDINATOR READING SR AT 66 BPM.NO COMPLAIN OF PAIN/DISCOMFORT AT THIS TIME,DUE MEDS GIVEN ORDER,ALL NEEDS ATTENDED, WITH IV ACCESS ONT HE LEFT HAD G 20 ON SALINE LOCK, PATENT AND INTACT. SAFETY PRECAUTIONS IN PLACE. BED IN LOWEST LOCKED POSITION, HOB ELEVATED, SIDE RAILS UP X2, CALL LIGHT AND TABLE WITHIN REACH. WILL ENDORSED TO NEXT SHIFT.
--- NOTE | 2022-09-07 07:45 | NUR ---
FACILITIES ENGINEER OPENING NOTE RECEIVED PATIENT AWAKE SITTING ON CHAIR, AOX 4,TAGALOG AND SET[place] SPEAKING,ABLE TO MAKE NEEDS KNOWN. PATIENT ON O2 AT 2 LPM VIA NC STAN WELL SAT 98% NO SOB/DISTRESS NOTED,ON EXTERNAL AUTOMATIC LATHE OPERATOR READING SR AT 85 BPM.NO COMPLAIN OF PAIN/DISCOMFORT AT THIS TIME, WITH IV ACCESS ON LEFT HAND G 20 ON SALINE LOCK, PATENT AND INTACT. SAFETY PRECAUTIONS IN PLACE. BED IN LOWEST LOCKED POSITION, HOB ELEVATED, SIDE RAILS UP X2, CALL LIGHT AND TABLE WITHIN REACH. WILL CONTINUE TO MONITOR PT.
[2022-09-07] MEDS: IPRATROPIUM NEB FS 0.5 MG/2.5 ML AMPUL.NEB NEB SCH ×2 (07:48→10:39)
[2022-09-07] MEDS: ALBUTEROL FS 2.5 MG/0.5 ML VIAL.NEB NEB SCH ×2 (07:48→10:39)
--- NOTE | 2022-09-07 08:08 | NUR ---
RN NOTES RECEIVED REPORT FROM PREVIOUS/SHIFT SHIFT THAT PT HAS NO FEVER. PT'S TEMP AT 12 MIDNIGHT WAS INPUT INCORRECTLY TO THE SYSTEM AT 84.4F. PT'S TEMP CHECKED BY BY STEFAN AT 0800 WAS 98F. PT IS A/O X4 WITH NO COMPLAINTS AT THIS TIME.
[2022-09-07] MEDS: ATORVASTATIN 10 MG TABLET PO SCH (08:40)
[2022-09-07] MEDS: ASPIRIN 81 MG TAB.CHEW PO SCH (08:40)
[2022-09-07] MEDS: hydrALAZINE HCL 50 MG TABLET PO SCH ×2 (08:42→12:46)
[2022-09-07] MEDS: AMLODIPINE BESYLATE 5 MG TABLET PO SCH (08:42)
[2022-09-07] MEDS: ISOSORBIDE DINITRATE (20MG) 20 MG TABLET PO SCH (08:43)
[2022-09-07] MEDS: METOPROLOL TARTRATE 25 MG TABLET PO SCH (08:43)
[2022-09-07] MEDS: HEPARIN SODIUM, PORCINE 5000 UNITS/1 ML VIAL SQ SCH (08:45)
[2022-09-07] MEDS: ENSURE ENLIVE CHOC 237 ML CAN PO SCH (08:50)
[2022-09-07] MEDS ORDERED: RIFAMPIN 300 MG CAPSULE PO SCH (09:00)
[2022-09-07] MEDS ORDERED: ISONIAZID (300 MG) 300 MG TABLET PO SCH (09:00)
[2022-09-07] MEDS ORDERED: PYRIDOXINE HCL 50 MG TABLET PO SCH (09:00)
[2022-09-07] MEDS: EPOETIN ALFA-EPBX 2,000 UNIT/ML VIAL SQ SCH (14:45)
--- NOTE | 2022-09-07 15:30 | NUR ---
DISCHARGED NOTES RN PATIENT DISCHARGED TO [facility] IN STABLE CONDITION. A/O X4, ABLE TO MAKE NEEDS KNOWN. AMBULATORY. PATIENT IS BREATHING EVENLY AND UNLABORED ON ROOM AIR, NO SIGNS OF ACUTE DISTRESS NOTED. PATIENT'S BELONGINGS ACCOUNTED FOR, BELONGING SHEET SIGNED BY PATIENT. NO SKIN ISSUES NOTED. PATIENT WERE GIVEN DISCHARGE INSTRUCTIONS AND VERBALIZED UNDERSTANDING. IV ACCESS ON LEFT HAND G#20 REMOVED, NO ACTIVE BLEEDING NOTED, DRY DRESSING APPLIED AT SITE. CALLED AND REPORT GIVEN TO KIANNA VENEGAS OF [facility]. PT' S DAUGHTER GABBY AWARE OF PT'S D/C TODAY. PATIENT LEFT UNIT VIA GURNEY AT 1525 ACCOMPANIED BY 2 EMT'S FROM [facility]. AND CHARGE NURSE AWARE ON D/C.
== END 2022-09-07 15:30 | DRG 280 ==
LOC: ER 08:37 → TELE 12:11 → MED 09-07 13:01
PROVIDERS: ADMIT Internal Medicine; ATTEND Internal Medicine
DX: I13.0 Hypertensive heart and chronic kidney disease with heart failure and stage 1 through stage 4 chronic kidney disease, or unspecified chronic kidney disease (principal); I21.A1 Myocardial infarction type 2; E43 Unspecified severe protein-calorie malnutrition; J96.01 Acute respiratory failure with hypoxia; G93.41 Metabolic encephalopathy; N17.0 Acute kidney failure with tubular necrosis; I50.33 Acute on chronic diastolic (congestive) heart failure; N18.9 Chronic kidney disease, unspecified; E11.22 Type 2 diabetes mellitus with diabetic chronic kidney disease; E88.09 Other disorders of plasma-protein metabolism, not elsewhere classified; I16.0 Hypertensive urgency; I25.2 Old myocardial infarction; I27.20 Pulmonary hypertension, unspecified; Z79.82 Long term (current) use of aspirin; Z79.84 Long term (current) use of oral hypoglycemic drugs; Z86.15 Personal history of latent tuberculosis infection; Z90.49 Acquired absence of other specified parts of digestive tract; I42.0 Dilated cardiomyopathy; Z99.81 Dependence on supplemental oxygen; I25.10 Atherosclerotic heart disease of native coronary artery without angina pectoris; Z68.21 Body mass index [BMI] 21.0-21.9, adult; D63.1 Anemia in chronic kidney disease; Z79.899 Other long term (current) drug therapy
CPT/HCPCS: 36415; 71045-TC; 76700-TC; 80048-TC; 80053-TC; 80076-TC; 81001; 82533; 82570-TC; 82728-TC; 83540-TC; 83735-TC; 83880; 84100-TC; 84300-TC; 84439-TC; 84443-TC; 84484-TC; 85025-TC; 85027-TC; 85610-TC; 85730-TC; 87081-TC; 93307-TC; 94799-TC; A4223; A9502; G0378; J0360; J0885; J1644; J1940; J2785; J3490; J7050

== ENCOUNTER 2022-12-08 22:55 | Inpatient (IN) | payer MEDICARE, OTHER ==
[~2022-12-08] VITALS: Ht 157.5 cm; Wt 57.2 kg
[2022-12-08] MEDS: AZITHROMYCIN 500 MG in IV D5W 250 ML IV ONE (00:20)
[~2022-12-08 22:55] MED LIST: AMLO5TAB4 PO; ASPI-1169 PO; BISA10SU11 RC; CARV25TA2 PO; CETI-90 PO; CYAN10006 IM; DOCU100T2 PO; DOXA1TAB2 PO; FERR325T23 PO; FURO-144 PO; HYDR-4077 PO; ISON300T19 PO; ISOS120T13 PO; MAGN400O6 PO; MEGE400O4 PO; MIRT-90 PO; NA P133E RC; PYRI25TA3 PO; RIFA300C4 PO; SENN-261 PO; SITA50TA PO
[2022-12-08] MEDS ORDERED: CEFTRIAXONE 1GM BAG (ER ONLY) 50 ML IV ONE (23:30)
[2022-12-08] MEDS ORDERED: ACETAMINOPHEN ES 500 MG TABLET PO ONE (23:30)
[2022-12-08] MEDS ORDERED: AZITHROMYCIN 500 MG VIAL ONE (23:39)
[2022-12-08] MEDS ORDERED: CEFTRIAXONE 1 G VIAL ONE (23:40)
[2022-12-08] MEDS ORDERED: ACETAMINOPHEN ES 500 MG TABLET ONE (23:40)
[2022-12-09] MEDS: AZITHROMYCIN 500 MG in IV D5W 250 ML IV ONE (00:20)
[2022-12-09 00:40] LABS: LACTIC ACID 0.8 mmol/L (0.4-2.0)
[2022-12-09 00:45] LABS: CALCIUM, SERUM 8.5 mg/dL (8.5-10.1); CARBON DIOXIDE 24 mmol/L (21-32); CHLORIDE 99 mmol/L (98-107); CREATININE 2.1 mg/dL (0.6-1.3); GLUCOSE 179 mg/dL (74-106); POTASSIUM 4.8 mmol/L (3.5-5.1); SODIUM SERUM 134 mmol/L (136-145); UREA NITROGEN, BLOOD 16 mg/dL (7-18)
[2022-12-09 00:50] LABS: ALANINE AMINOTRANSFERASE 19 U/L (12-78); ALBUMIN 3.2 g/dL (3.4-5.0); ALKALINE PHOSPHATASE 67 U/L (46-116); ASPARTATE AMINOTRANSFERASE 39 U/L (15-37); BILIRUBIN,DIRECT 0.1 mg/dL (0.0-0.2); BILIRUBIN,TOTAL 0.8 mg/dL (0.2-1.0)
[2022-12-09 00:56] LABS: BASOPHILS # (AUTO) 0.1 K/uL (0.0-0.2); BASOPHILS % (AUTO) 2.2 % (0.0-2.0); EOSINOPHILS % (AUTO) 0.7 % (0.0-6.0); HEMATOCRIT 35 % (33-45); HEMOGLOBIN 11.5 g/dL (11.5-14.8); LYMPHOCYTES # (AUTO) 0.3 K/uL (0.8-4.8); LYMPHOCYTES % (AUTO) 5.2 % (20.0-44.0); MEAN CORPUSCULAR HEMOGLOBIN 32 PG (26.0-33.0); MEAN CORPUSCULAR HGB CONC 33 g/dl (31.0-36.0); MEAN CORPUSCULAR VOLUME 98 fL (82-100); MONOCYTES # (AUTO) 0.2 K/uL (0.1-1.30); MONOCYTES % (AUTO) 3.1 % (2.0-12.0); NEUTROPHILS # (AUTO) 5.3 K/uL (1.8-8.9); NEUTROPHILS % (AUTO) 88.8 % (43.0-81.0); PLATELET COUNT (AUTO) 126 K/uL (150-450); RED BLOOD CELL COUNT(AUTO) 3.55 MIL/uL (4.0-5.2); RED CELL DISTRIBUTION WIDTH 15.1 % (11.5-15.0)
[2022-12-09] MEDS ORDERED: ASPIRIN 81 MG TAB.CHEW PO ONE (01:00)
[2022-12-09] MEDS ORDERED: ASPIRIN 81 MG TAB.CHEW ONE (01:07)
[2022-12-09 01:08] LABS: PARTIAL THROMBOPLASTIN TIME 30.1 SEC (24.3-34.3); PROTHROMBIN TIME 10.6 SECS (9.2-11.1)
[2022-12-09] MEDS ORDERED: FUROSEMIDE 40 MG/4 ML VIAL IV ONE (01:30)
[2022-12-09] MEDS ORDERED: FUROSEMIDE 40 MG/4 ML VIAL ONE (01:32)
[2022-12-09] MEDS ORDERED: hydrALAZINE HCL 50 MG TABLET PO PRN ×2 (02:30→10:30)
[2022-12-09] MEDS ORDERED: MORPHINE SULFATE INJ 2 MG/ML DISP.SYRIN IV PRN (03:00)
[2022-12-09] MEDS ORDERED: hydrALAZINE HCL IV 20 MG VIAL IV PRN (03:00)
[2022-12-09] MEDS ORDERED: DEXTROSE 50%-WATER 50 ML DISP.SYRIN IV PRN (03:00)
[2022-12-09] MEDS ORDERED: ACETAMINOPHEN 325 MG TABLET PO PRN (03:00)
[2022-12-09] MEDS ORDERED: ALBUTEROL FS 2.5 MG/0.5 ML VIAL.NEB NEB PRN (03:00)
[2022-12-09] MEDS ORDERED: ONDANSETRON HCL/PF 4 MG/2 ML VIAL IVP PRN (03:00)
[2022-12-09] MEDS ORDERED: IPRATROPIUM/ALBUTEROL INHALER IH SCH (06:00)
[2022-12-09] MEDS: BLOOD SUGAR DIAGNOSTIC 1 EACH STRIP IN SCH ×4 (07:44→22:00)
[2022-12-09] MEDS ORDERED: MEGESTROL ACETATE SUSP 400 MG/10 ML UDC PO SCH (09:00)
[2022-12-09] MEDS ORDERED: CARVEDILOL 12.5 MG TABLET PO SCH (09:00)
[2022-12-09] MEDS ORDERED: PYRIDOXINE HCL 50 MG TABLET PO SCH (09:00)
[2022-12-09] MEDS ORDERED: AMLODIPINE BESYLATE 5 MG TABLET PO SCH (09:00)
[2022-12-09] MEDS ORDERED: FERROUS SULFATE (325 MG) 325 MG/TAB TABLET PO SCH (09:00)
[2022-12-09] MEDS ORDERED: HEPARIN SODIUM, PORCINE 5000 UNITS/1 ML VIAL SQ SCH (09:00)
[2022-12-09] MEDS ORDERED: ISONIAZID (300 MG) 300 MG TABLET PO SCH (09:00)
[2022-12-09] MEDS: ASPIRIN 81 MG TAB.CHEW PO SCH (09:42)
[2022-12-09] MEDS: FUROSEMIDE 40 MG/4 ML VIAL IV SCH ×2 (09:42→17:30)
[2022-12-09] MEDS: ISOSORBIDE MONONITRATE (30MG) 30 MG TAB.SR.24H PO SCH ×2 (09:43→21:00)
[2022-12-09] MEDS ORDERED: MINO2.5T PO (09:48)
[2022-12-09] MEDS ORDERED: ALLO100T PO (09:48)
[2022-12-09] MEDS ORDERED: SACU1TAB PO (09:48)
[2022-12-09] MEDS ORDERED: CYAN-51 PO (09:48)
[2022-12-09] MEDS ORDERED: FOLI0.8T2 PO (09:48)
[2022-12-09] MEDS ORDERED: MIRT7.5T10 PO (09:48)
[2022-12-09] MEDS ORDERED: SEVE800T8 PO (09:48)
[2022-12-09] MEDS ORDERED: ATOR80TA PO (09:48)
[2022-12-09] MEDS: ALLOPURINOL 100 MG TABLET PO SCH (11:04)
[2022-12-09] MEDS: MINOXIDIL (2.5MG) 2.5 MG TABLET PO SCH ×2 (11:05→17:28)
[2022-12-09] MEDS: INSULIN REGULAR, HUMAN 100 UNIT/ML 3 ML VIAL SQ PRN ×2 (11:34→17:44)
[2022-12-09 12:00] VITALS: BP 154/88; TEMP 97.9; O2SAT 99
[2022-12-09] MEDS: SEVELAMER CARBONATE 800 MG TABLET PO SCH ×2 (12:18→17:27)
[2022-12-09 16:00] VITALS: BP 144/82; TEMP 98.1; O2SAT 99
[2022-12-09] MEDS ORDERED: HEPARIN INFUSION/D5W 500 ML IV PRN (16:30)
[2022-12-09] MEDS ORDERED: HEPARIN SODIUM, PORCINE 5000 UNITS/1 ML VIAL IV ONE (16:30)
[2022-12-09] MEDS: SACUBITRIL/VALSARTAN 1 EACH TABLET PO SCH (17:23)
[2022-12-09 20:00] VITALS: BP 139/89; TEMP 99.1; O2SAT 100
[2022-12-09] MEDS: ALBUTEROL FS 2.5 MG/0.5 ML VIAL.NEB NEB SCH (20:58)
[2022-12-09 20:59] VITALS: O2SAT 96
[2022-12-09] MEDS: IPRATROPIUM NEB FS 0.5 MG/2.5 ML AMPUL.NEB IH SCH (20:59)
[2022-12-09] MEDS: CARVEDILOL 12.5 MG TABLET PO SCH (21:00)
[2022-12-09 21:11] VITALS: O2SAT 97
[2022-12-09] MEDS ORDERED: DOCUSATE SODIUM 100 MG CAPSULE PO SCH (22:00)
[2022-12-09] MEDS: MIRTAZAPINE 15 MG TABLET PO SCH (22:00)
[2022-12-09] MEDS: ATORVASTATIN 40 MG TABLET PO SCH (22:00)
[2022-12-09] MEDS ORDERED: DOXAZOSIN MESYLATE (1 MG) 1 MG TABLET PO SCH (22:00)
[2022-12-10] VITALS (13 sets, daily range): BP systolic 103–153; BP diastolic 57–87; TEMP 97.9–99.6; O2SAT 95–100
[2022-12-10] MEDS: ALBUTEROL FS 2.5 MG/0.5 ML VIAL.NEB NEB SCH ×5 (01:30→20:06)
[2022-12-10] MEDS: IPRATROPIUM NEB FS 0.5 MG/2.5 ML AMPUL.NEB IH SCH ×5 (01:30→20:06)
[2022-12-10 06:21] LABS: EOSINOPHILS # (AUTO) 0.1 K/uL (0.0-0.7); EOSINOPHILS % (AUTO) 2.7 % (0.0-6.0); HEMATOCRIT 31 % (33-45); HEMOGLOBIN 10.2 g/dL (11.5-14.8); LYMPHOCYTES # (AUTO) 0.7 K/uL (0.8-4.8); LYMPHOCYTES % (AUTO) 16.6 % (20.0-44.0); MEAN CORPUSCULAR HEMOGLOBIN 32 PG (26.0-33.0); MEAN CORPUSCULAR HGB CONC 33 g/dl (31.0-36.0); MEAN CORPUSCULAR VOLUME 98 fL (82-100); MONOCYTES # (AUTO) 0.6 K/uL (0.1-1.30); MONOCYTES % (AUTO) 15.4 % (2.0-12.0); NEUTROPHILS # (AUTO) 2.6 K/uL (1.8-8.9); NEUTROPHILS % (AUTO) 64.3 % (43.0-81.0); PLATELET COUNT (AUTO) 125 K/uL (150-450); RED BLOOD CELL COUNT(AUTO) 3.18 MIL/uL (4.0-5.2); RED CELL DISTRIBUTION WIDTH 14.9 % (11.5-15.0); WHITE BLOOD COUNT (AUTO) 4.1 K/uL (4.3-11.0)
[2022-12-10 07:02] LABS: ALANINE AMINOTRANSFERASE 12 U/L (12-78); ALBUMIN 2.6 g/dL (3.4-5.0); ALKALINE PHOSPHATASE 57 U/L (46-116); ASPARTATE AMINOTRANSFERASE 20 U/L (15-37); BILIRUBIN,TOTAL 0.3 mg/dL (0.2-1.0); CALCIUM, SERUM 8.2 mg/dL (8.5-10.1); CARBON DIOXIDE 28 mmol/L (21-32); CHLORIDE 105 mmol/L (98-107); CREATININE 1.9 mg/dL (0.6-1.3); GLUCOSE 113 mg/dL (74-106); MAGNESIUM 1.9 mg/dL (1.8-2.4); PHOSPHORUS 2.8 mg/dL (2.5-4.9); SODIUM SERUM 140 mmol/L (136-145); TOTAL PROTEIN, SERUM 5.9 g/dL (6.4-8.2); UREA NITROGEN, BLOOD 12 mg/dL (7-18)
[2022-12-10] MEDS: BLOOD SUGAR DIAGNOSTIC 1 EACH STRIP IN SCH ×4 (07:33→22:36)
[2022-12-10 08:28] LABS: BAND % (MANUAL) 1 % (0.0-5.0); EOSINOPHILS % (MANUAL) 3 % (0-4); LYMPHOCYTES % (MANUAL) 9 % (16-48); MONOCYTES % (MANUAL) 16 % (0-11.0); NEUTROPHILS % (MANUAL) 71 (42-76); PLATELET ESTIMATE DECREASED
[2022-12-10] MEDS ORDERED: POTASSIUM CHLORIDE 20 MEQ TAB.PRT.SR PO ONE (08:30)
[2022-12-10] MEDS: CARVEDILOL 12.5 MG TABLET PO SCH ×2 (08:33→22:27)
[2022-12-10] MEDS: SEVELAMER CARBONATE 800 MG TABLET PO SCH ×3 (08:38→17:31)
[2022-12-10] MEDS: VIT B CMPLX 3/FA/VIT C/BIOTIN 1 TAB TABLET PO SCH (08:38)
[2022-12-10] MEDS: ASPIRIN 81 MG TAB.CHEW PO SCH (08:38)
[2022-12-10] MEDS: ALLOPURINOL 100 MG TABLET PO SCH (08:39)
[2022-12-10] MEDS: CYANOCOBALAMIN 500 MCG TABLET PO SCH (08:39)
[2022-12-10] MEDS: FUROSEMIDE 40 MG/4 ML VIAL IV SCH ×2 (08:40→17:22)
[2022-12-10] MEDS: ISOSORBIDE MONONITRATE (30MG) 30 MG TAB.SR.24H PO SCH ×2 (08:41→22:29)
[2022-12-10] MEDS: MINOXIDIL (2.5MG) 2.5 MG TABLET PO SCH ×2 (08:42→17:21)
[2022-12-10] MEDS: SACUBITRIL/VALSARTAN 1 EACH TABLET PO SCH ×2 (09:06→17:20)
[2022-12-10] MEDS: ATORVASTATIN 40 MG TABLET PO SCH (22:26)
[2022-12-10] MEDS: MIRTAZAPINE 15 MG TABLET PO SCH (22:28)
[2022-12-10] MEDS: INSULIN REGULAR, HUMAN 100 UNIT/ML 3 ML VIAL SQ PRN (22:38)
[2022-12-10] MEDS: GUAIFENESIN/D-METHORPHAN HB 5 ML UDC PO PRN (23:51)
[2022-12-11] VITALS (14 sets, daily range): BP systolic 101–149; BP diastolic 50–69; TEMP 97.9–99.1; O2SAT 92–100
[2022-12-11] MEDS: ALBUTEROL FS 2.5 MG/0.5 ML VIAL.NEB NEB SCH ×4 (00:51→20:18)
[2022-12-11] MEDS: IPRATROPIUM NEB FS 0.5 MG/2.5 ML AMPUL.NEB IH SCH ×4 (00:51→20:18)
[2022-12-11 06:40] LABS: BASOPHILS % (AUTO) 0.9 % (0.0-2.0); EOSINOPHILS # (AUTO) 0.2 K/uL (0.0-0.7); EOSINOPHILS % (AUTO) 5.1 % (0.0-6.0); HEMATOCRIT 32 % (33-45); HEMOGLOBIN 10.6 g/dL (11.5-14.8); LYMPHOCYTES % (AUTO) 26.8 % (20.0-44.0); MEAN CORPUSCULAR HEMOGLOBIN 32 PG (26.0-33.0); MEAN CORPUSCULAR HGB CONC 33 g/dl (31.0-36.0); MEAN CORPUSCULAR VOLUME 98 fL (82-100); MONOCYTES # (AUTO) 0.7 K/uL (0.1-1.30); MONOCYTES % (AUTO) 17.6 % (2.0-12.0); NEUTROPHILS # (AUTO) 1.9 K/uL (1.8-8.9); NEUTROPHILS % (AUTO) 49.6 % (43.0-81.0); PLATELET COUNT (AUTO) 134 K/uL (150-450); RED BLOOD CELL COUNT(AUTO) 3.29 MIL/uL (4.0-5.2); RED CELL DISTRIBUTION WIDTH 14.8 % (11.5-15.0); WHITE BLOOD COUNT (AUTO) 3.7 K/uL (4.3-11.0)
[2022-12-11 07:09] LABS: ALANINE AMINOTRANSFERASE 16 U/L (12-78); ALBUMIN 2.5 g/dL (3.4-5.0); ALKALINE PHOSPHATASE 53 U/L (46-116); ASPARTATE AMINOTRANSFERASE 18 U/L (15-37); BILIRUBIN,TOTAL 0.4 mg/dL (0.2-1.0); CALCIUM, SERUM 8.4 mg/dL (8.5-10.1); CARBON DIOXIDE 30 mmol/L (21-32); CHLORIDE 101 mmol/L (98-107); CREATININE 1.8 mg/dL (0.6-1.3); GLUCOSE 93 mg/dL (74-106); MAGNESIUM 1.8 mg/dL (1.8-2.4); PHOSPHORUS 2.8 mg/dL (2.5-4.9); POTASSIUM 3.9 mmol/L (3.5-5.1); SODIUM SERUM 141 mmol/L (136-145); TOTAL PROTEIN, SERUM 5.8 g/dL (6.4-8.2); UREA NITROGEN, BLOOD 14 mg/dL (7-18)
[2022-12-11] MEDS: BLOOD SUGAR DIAGNOSTIC 1 EACH STRIP IN SCH ×4 (07:34→21:26)
[2022-12-11] MEDS: INSULIN REGULAR, HUMAN 100 UNIT/ML 3 ML VIAL SQ PRN ×4 (07:34→21:27)
[2022-12-11 08:07] LABS: HEPATITIS B SURFACE AB Non Reactive (.)
[2022-12-11] MEDS: SEVELAMER CARBONATE 800 MG TABLET PO SCH ×3 (08:22→17:26)
[2022-12-11] MEDS: ASPIRIN 81 MG TAB.CHEW PO SCH (08:22)
[2022-12-11] MEDS: ALLOPURINOL 100 MG TABLET PO SCH (08:22)
[2022-12-11] MEDS: VIT B CMPLX 3/FA/VIT C/BIOTIN 1 TAB TABLET PO SCH (08:22)
[2022-12-11] MEDS: CYANOCOBALAMIN 500 MCG TABLET PO SCH (08:23)
[2022-12-11] MEDS: SACUBITRIL/VALSARTAN 1 EACH TABLET PO SCH ×2 (08:23→17:26)
[2022-12-11] MEDS: MINOXIDIL (2.5MG) 2.5 MG TABLET PO SCH ×2 (08:23→17:26)
[2022-12-11] MEDS: ISOSORBIDE MONONITRATE (30MG) 30 MG TAB.SR.24H PO SCH ×2 (08:24→21:16)
[2022-12-11] MEDS: CARVEDILOL 12.5 MG TABLET PO SCH ×2 (08:24→21:15)
[2022-12-11] MEDS: FUROSEMIDE 40 MG/4 ML VIAL IV SCH ×2 (08:25→17:25)
[2022-12-11 10:03] LABS: EOSINOPHILS % (MANUAL) 5 % (0-4); LYMPHOCYTES % (MANUAL) 30 % (16-48); MONOCYTES % (MANUAL) 12 % (0-11.0); NEUTROPHILS % (MANUAL) 53 (42-76); PLATELET ESTIMATE DECREASED
[2022-12-11] MEDS: GUAIFENESIN/D-METHORPHAN HB 5 ML UDC PO PRN (17:40)
[2022-12-11] MEDS: MIRTAZAPINE 15 MG TABLET PO SCH (21:16)
[2022-12-11] MEDS: ATORVASTATIN 40 MG TABLET PO SCH (21:16)
[2022-12-12] VITALS (14 sets, daily range): BP systolic 108–169; BP diastolic 57–85; TEMP 97.7–98.6; O2SAT 92–100
[2022-12-12] MEDS: ALBUTEROL FS 2.5 MG/0.5 ML VIAL.NEB NEB SCH ×4 (01:21→19:38)
[2022-12-12] MEDS: IPRATROPIUM NEB FS 0.5 MG/2.5 ML AMPUL.NEB IH SCH ×4 (01:21→19:38)
[2022-12-12 06:51] LABS: EOSINOPHILS # (AUTO) 0.2 K/uL (0.0-0.7); EOSINOPHILS % (AUTO) 6.3 % (0.0-6.0); HEMATOCRIT 34 % (33-45); HEMOGLOBIN 11.3 g/dL (11.5-14.8); LYMPHOCYTES # (AUTO) 1.1 K/uL (0.8-4.8); LYMPHOCYTES % (AUTO) 32.5 % (20.0-44.0); MEAN CORPUSCULAR HEMOGLOBIN 33 PG (26.0-33.0); MEAN CORPUSCULAR HGB CONC 33 g/dl (31.0-36.0); MEAN CORPUSCULAR VOLUME 99 fL (82-100); MONOCYTES # (AUTO) 0.4 K/uL (0.1-1.30); MONOCYTES % (AUTO) 12.7 % (2.0-12.0); NEUTROPHILS # (AUTO) 1.7 K/uL (1.8-8.9); NEUTROPHILS % (AUTO) 47.5 % (43.0-81.0); PLATELET COUNT (AUTO) 177 K/uL (150-450); RED BLOOD CELL COUNT(AUTO) 3.46 MIL/uL (4.0-5.2); RED CELL DISTRIBUTION WIDTH 14.9 % (11.5-15.0); WHITE BLOOD COUNT (AUTO) 3.5 K/uL (4.3-11.0)
[2022-12-12 07:21] LABS: ALANINE AMINOTRANSFERASE 16 U/L (12-78); ALBUMIN 2.6 g/dL (3.4-5.0); ALKALINE PHOSPHATASE 57 U/L (46-116); ASPARTATE AMINOTRANSFERASE 29 U/L (15-37); BILIRUBIN,TOTAL 0.5 mg/dL (0.2-1.0); CALCIUM, SERUM 8.7 mg/dL (8.5-10.1); CARBON DIOXIDE 27 mmol/L (21-32); CHLORIDE 105 mmol/L (98-107); CREATININE 2.5 mg/dL (0.6-1.3); GLUCOSE 98 mg/dL (74-106); MAGNESIUM 1.8 mg/dL (1.8-2.4); PHOSPHORUS 3.7 mg/dL (2.5-4.9); POTASSIUM 4.1 mmol/L (3.5-5.1); SODIUM SERUM 141 mmol/L (136-145); TOTAL PROTEIN, SERUM 6.2 g/dL (6.4-8.2); UREA NITROGEN, BLOOD 26 mg/dL (7-18)
[2022-12-12] MEDS: BLOOD SUGAR DIAGNOSTIC 1 EACH STRIP IN SCH ×4 (07:52→22:13)
[2022-12-12] MEDS: VIT B CMPLX 3/FA/VIT C/BIOTIN 1 TAB TABLET PO SCH (08:30)
[2022-12-12] MEDS: SEVELAMER CARBONATE 800 MG TABLET PO SCH ×3 (08:30→17:13)
[2022-12-12] MEDS: CYANOCOBALAMIN 500 MCG TABLET PO SCH (08:30)
[2022-12-12] MEDS: ISOSORBIDE MONONITRATE (30MG) 30 MG TAB.SR.24H PO SCH ×2 (08:31→21:37)
[2022-12-12] MEDS: MINOXIDIL (2.5MG) 2.5 MG TABLET PO SCH ×2 (08:31→17:13)
[2022-12-12] MEDS: ASPIRIN 81 MG TAB.CHEW PO SCH (08:31)
[2022-12-12] MEDS: ALLOPURINOL 100 MG TABLET PO SCH (08:31)
[2022-12-12] MEDS: CARVEDILOL 12.5 MG TABLET PO SCH ×2 (08:32→21:37)
[2022-12-12] MEDS: SACUBITRIL/VALSARTAN 1 EACH TABLET PO SCH ×2 (08:35→17:15)
[2022-12-12] MEDS: FUROSEMIDE 40 MG/4 ML VIAL IV SCH (08:36)
[2022-12-12] MEDS ORDERED: POTASSIUM CHLORIDE 20 MEQ TAB.PRT.SR PO ONE (10:30)
[2022-12-12] MEDS: FUROSEMIDE 20 MG/2 ML VIAL IV SCH (17:13)
[2022-12-12] MEDS: INSULIN REGULAR, HUMAN 100 UNIT/ML 3 ML VIAL SQ PRN ×2 (17:20→22:15)
[2022-12-12] MEDS: MIRTAZAPINE 15 MG TABLET PO SCH (21:36)
[2022-12-12] MEDS: ATORVASTATIN 40 MG TABLET PO SCH (21:37)
[2022-12-13] VITALS (12 sets, daily range): BP systolic 113–163; BP diastolic 51–80; TEMP 98–98.5; O2SAT 92–100
[2022-12-13] MEDS: IPRATROPIUM NEB FS 0.5 MG/2.5 ML AMPUL.NEB IH SCH ×3 (01:55→14:08)
[2022-12-13] MEDS: ALBUTEROL FS 2.5 MG/0.5 ML VIAL.NEB NEB SCH ×3 (01:56→14:08)
[2022-12-13] MEDS: BLOOD SUGAR DIAGNOSTIC 1 EACH STRIP IN SCH ×3 (07:20→17:15)
[2022-12-13] MEDS: INSULIN REGULAR, HUMAN 100 UNIT/ML 3 ML VIAL SQ PRN (07:23)
[2022-12-13] MEDS: ASPIRIN 81 MG TAB.CHEW PO SCH (09:03)
[2022-12-13] MEDS: MINOXIDIL (2.5MG) 2.5 MG TABLET PO SCH ×2 (09:06→17:14)
[2022-12-13] MEDS: ALLOPURINOL 100 MG TABLET PO SCH (09:06)
[2022-12-13] MEDS: ISOSORBIDE MONONITRATE (30MG) 30 MG TAB.SR.24H PO SCH (09:06)
[2022-12-13] MEDS: CARVEDILOL 12.5 MG TABLET PO SCH (09:07)
[2022-12-13] MEDS: SEVELAMER CARBONATE 800 MG TABLET PO SCH ×3 (09:07→17:14)
[2022-12-13] MEDS: FUROSEMIDE 20 MG/2 ML VIAL IV SCH ×2 (09:08→17:14)
[2022-12-13] MEDS: VIT B CMPLX 3/FA/VIT C/BIOTIN 1 TAB TABLET PO SCH (09:10)
[2022-12-13] MEDS: SACUBITRIL/VALSARTAN 1 EACH TABLET PO SCH ×2 (09:10→17:15)
[2022-12-13] MEDS: CYANOCOBALAMIN 500 MCG TABLET PO SCH (09:10)
== END 2022-12-13 19:47 | DRG 280 ==
LOC: ER 22:56 → TELE1 12-09 03:00
PROC: 5A1D70Z Performance of Urinary Filtration, Intermittent, Less than 6 Hours Per Day (ICD-10-PCS; principal; 2022-12-09)
DX: I13.2 Hypertensive heart and chronic kidney disease with heart failure and with stage 5 chronic kidney disease, or end stage renal disease (principal); I21.A1 Myocardial infarction type 2; E43 Unspecified severe protein-calorie malnutrition; G93.41 Metabolic encephalopathy; J96.01 Acute respiratory failure with hypoxia; N18.6 End stage renal disease; N17.0 Acute kidney failure with tubular necrosis; I50.33 Acute on chronic diastolic (congestive) heart failure; E87.1 Hypo-osmolality and hyponatremia; E11.22 Type 2 diabetes mellitus with diabetic chronic kidney disease; D64.9 Anemia, unspecified; E78.5 Hyperlipidemia, unspecified; E87.6 Hypokalemia; E88.09 Other disorders of plasma-protein metabolism, not elsewhere classified; I16.0 Hypertensive urgency; Z79.82 Long term (current) use of aspirin; Z79.84 Long term (current) use of oral hypoglycemic drugs; Z99.2 Dependence on renal dialysis; Z20.822 Contact with and (suspected) exposure to COVID-19; Z68.23 Body mass index [BMI] 23.0-23.9, adult; M89.8X9 Other specified disorders of bone, unspecified site
CPT/HCPCS: 36415; 71045-TC; 80048-TC; 80053-TC; 80076-TC; 82962-TC; 83605-TC; 83735-TC; 83880; 84100-TC; 84484-TC; 85025-TC; 85730-TC; 86706; 87040-TC; 87340; 90935-TC; 94799-TC; 97112-TC; 97116-TC; 97530-TC; A4223; C9803; G0378; J0456; J0696; J1644; J1815; J1940; J7030; J7060

== ENCOUNTER 2023-04-06 23:07 | Inpatient (IN) | payer MEDICARE, OTHER ==
[~2023-04-06] VITALS: Ht 152.4 cm; Wt 54.0 kg
[~2023-04-06 23:07] MED LIST changes: +ALLO100T PO; +ATOR80TA PO; +CYAN-51 PO; +FOLI0.8T2 PO; +MINO2.5T PO; +MIRT7.5T10 PO; +SACU1TAB PO; +SEVE800T8 PO
[2023-04-06 23:49] LABS: BASOPHILS % (AUTO) 0.5 % (0.0-2.0); EOSINOPHILS # (AUTO) 0.6 K/uL (0.0-0.7); EOSINOPHILS % (AUTO) 12.1 % (0.0-6.0); HEMATOCRIT 35 % (33-45); HEMOGLOBIN 11.7 g/dL (11.5-14.8); LYMPHOCYTES # (AUTO) 0.8 K/uL (0.8-4.8); LYMPHOCYTES % (AUTO) 15.9 % (20.0-44.0); MEAN CORPUSCULAR HEMOGLOBIN 34 PG (26.0-33.0); MEAN CORPUSCULAR HGB CONC 33 g/dl (31.0-36.0); MEAN CORPUSCULAR VOLUME 101 fL (82-100); MONOCYTES # (AUTO) 0.4 K/uL (0.1-1.30); MONOCYTES % (AUTO) 8.2 % (2.0-12.0); NEUTROPHILS # (AUTO) 3.4 K/uL (1.8-8.9); NEUTROPHILS % (AUTO) 63.3 % (43.0-81.0); PLATELET COUNT (AUTO) 108 K/uL (150-450); RED BLOOD CELL COUNT(AUTO) 3.49 MIL/uL (4.0-5.2); RED CELL DISTRIBUTION WIDTH 15.9 % (11.5-15.0); WHITE BLOOD COUNT (AUTO) 5.3 K/uL (4.3-11.0)
[2023-04-06 23:55] LABS: INR 1.02 (0.91-1.10); PARTIAL THROMBOPLASTIN TIME 29.6 SEC (24.3-34.3); PROTHROMBIN TIME 10.8 SECS (9.2-11.1)
[2023-04-06 23:59] LABS: CALCIUM, SERUM 8.8 mg/dL (8.5-10.1); CARBON DIOXIDE 25 mmol/L (21-32); CHLORIDE 106 mmol/L (98-107); CREATININE 2.4 mg/dL (0.6-1.3); GLUCOSE 170 mg/dL (74-106); POTASSIUM 3.8 mmol/L (3.5-5.1); SODIUM SERUM 139 mmol/L (136-145); UREA NITROGEN, BLOOD 28 mg/dL (7-18)
[2023-04-07] MEDS ORDERED: NITROGLYCERIN 0.4 MG/TAB BOTTLE ONE (00:08)
[2023-04-07] MEDS ORDERED: ASPIRIN 325 MG TABLET ONE (00:08)
[2023-04-07] MEDS: ASPIRIN 325 MG TABLET PO ONE (00:15)
[2023-04-07] MEDS: NITROGLYCERIN 0.4 MG/TAB BOTTLE SL ONE (00:16)
[2023-04-07 00:18] LABS: ALANINE AMINOTRANSFERASE 21 U/L (12-78); ALBUMIN 3.1 g/dL (3.4-5.0); ALKALINE PHOSPHATASE 103 U/L (46-116); ASPARTATE AMINOTRANSFERASE 18 U/L (15-37); BILIRUBIN,DIRECT 0.1 mg/dL (0.0-0.2); NT-PRO BNP 17702 pg/mL (0-125); TOTAL PROTEIN, SERUM 6.7 g/dL (6.4-8.2)
[2023-04-07 00:38] LABS: BILIRUBIN,TOTAL 0.4 mg/dL (0.2-1.0)
[2023-04-07 05:06] VITALS: BP 150/66; TEMP 98.6
[2023-04-07] MEDS ORDERED: Z GUARD REMEDY 4 OZ OINT TP PRN (05:30)
[2023-04-07] MEDS ORDERED: ONDANSETRON HCL/PF 4 MG/2 ML VIAL IVP PRN (05:30)
[2023-04-07] MEDS ORDERED: NITROGLYCERIN 0.4 MG/TAB BOTTLE SL PRN (05:30)
[2023-04-07] MEDS ORDERED: MORPHINE SULFATE INJ 2 MG/ML DISP.SYRIN IV PRN (05:30)
[2023-04-07] MEDS ORDERED: MAG HYDROX/AL HYDROX/SIMETH 30 ML UDC PO PRN (05:30)
[2023-04-07] MEDS ORDERED: ZOLPIDEM TARTRATE 5 MG TABLET PO PRN (05:30)
[2023-04-07 08:00] VITALS: BP 142/80; TEMP 98.4; O2SAT 97
[2023-04-07 08:20] LABS: BASOPHILS % (AUTO) 0.9 % (0.0-2.0); EOSINOPHILS # (AUTO) 0.8 K/uL (0.0-0.7); EOSINOPHILS % (AUTO) 13.8 % (0.0-6.0); HEMATOCRIT 34 % (33-45); HEMOGLOBIN 11.4 g/dL (11.5-14.8); LYMPHOCYTES # (AUTO) 1.6 K/uL (0.8-4.8); LYMPHOCYTES % (AUTO) 28.8 % (20.0-44.0); MEAN CORPUSCULAR HEMOGLOBIN 33 PG (26.0-33.0); MEAN CORPUSCULAR HGB CONC 33 g/dl (31.0-36.0); MEAN CORPUSCULAR VOLUME 101 fL (82-100); MONOCYTES # (AUTO) 0.6 K/uL (0.1-1.30); MONOCYTES % (AUTO) 11.2 % (2.0-12.0); NEUTROPHILS # (AUTO) 2.5 K/uL (1.8-8.9); NEUTROPHILS % (AUTO) 45.3 % (43.0-81.0); PLATELET COUNT (AUTO) 118 K/uL (150-450); RED BLOOD CELL COUNT(AUTO) 3.41 MIL/uL (4.0-5.2); RED CELL DISTRIBUTION WIDTH 15.9 % (11.5-15.0); WHITE BLOOD COUNT (AUTO) 5.4 K/uL (4.3-11.0)
[2023-04-07 08:38] LABS: CALCIUM, SERUM 8.8 mg/dL (8.5-10.1); CARBON DIOXIDE 23 mmol/L (21-32); CHLORIDE 107 mmol/L (98-107); CREATININE 2.6 mg/dL (0.6-1.3); GLUCOSE 121 mg/dL (74-106); POTASSIUM 3.9 mmol/L (3.5-5.1); SODIUM SERUM 140 mmol/L (136-145); UREA NITROGEN, BLOOD 33 mg/dL (7-18)
[2023-04-07] MEDS: CARVEDILOL 12.5 MG TABLET PO SCH ×2 (08:39→20:12)
[2023-04-07] MEDS: RIFAMPIN 300 MG CAPSULE PO SCH (08:39)
[2023-04-07] MEDS: ASPIRIN EC 81 MG TABLET.DR PO SCH (08:40)
[2023-04-07] MEDS: PYRIDOXINE HCL 50 MG TABLET PO SCH (08:40)
[2023-04-07] MEDS: FERROUS SULFATE (325 MG) 325 MG/TAB TABLET PO SCH (08:40)
[2023-04-07] MEDS: FUROSEMIDE 40 MG TABLET PO SCH (08:41)
[2023-04-07] MEDS: AMLODIPINE BESYLATE 5 MG TABLET PO SCH (08:41)
[2023-04-07] MEDS: SEVELAMER CARBONATE 800 MG TABLET PO SCH (08:50)
[2023-04-07] MEDS: PANTOPRAZOLE 40 MG TABLET.DR PO SCH (08:50)
[2023-04-07] MEDS: MINOXIDIL (2.5MG) 2.5 MG TABLET PO SCH (09:54)
[2023-04-07] MEDS: LINAGLIPTIN 5 MG TABLET PO SCH (09:55)
[2023-04-07] MEDS: ISONIAZID (300 MG) 300 MG TABLET PO SCH (09:55)
[2023-04-07] MEDS: ISOSORBIDE MONONITRATE 20 MG TABLET PO SCH (09:56)
[2023-04-07 12:00] VITALS: BP 94/46; TEMP 98.3; O2SAT 95
[2023-04-07] MEDS ORDERED: GUAI100S9 PO (15:42)
[2023-04-07] MEDS ORDERED: ASPI-1420 PO (15:42)
[2023-04-07] MEDS ORDERED: IPRA3AMP23 IH (15:42)
[2023-04-07] MEDS ORDERED: AMIN30LI2 PO (15:42)
[2023-04-07] MEDS ORDERED: ALBU2.5V13 IH (15:42)
[2023-04-07] MEDS ORDERED: CHOL100043 PO (15:42)
[2023-04-07] MEDS ORDERED: CARV12.52 PO (15:42)
[2023-04-07] MEDS ORDERED: FURO20TA4 PO (15:42)
[2023-04-07 16:00] VITALS: BP 102/49; TEMP 98.6; O2SAT 98
[2023-04-07] MEDS ORDERED: ALBUTEROL FS 2.5 MG/0.5 ML VIAL.NEB IH PRN (16:00)
[2023-04-07] MEDS: CHOLECALCIFEROL 1,000 UNIT TABLET (VIT D3) PO SCH (16:29)
[2023-04-07] MEDS ORDERED: IPRATROPIUM NEB FS 0.5 MG/2.5 ML AMPUL.NEB NEB PRN (16:30)
[2023-04-07] MEDS: PROSTAT (PYXIS) 30 ML UDC PO SCH (16:31)
[2023-04-07] MEDS ORDERED: DEXTROSE 50%-WATER 50 ML DISP.SYRIN IV PRN (18:30)
[2023-04-07] MEDS: SACUBITRIL/VALSARTAN 1 EACH TABLET PO SCH (20:13)
[2023-04-07 20:19] VITALS: BP 100/55; TEMP 98.4; O2SAT 98
[2023-04-07] MEDS: MIRTAZAPINE 15 MG TABLET PO SCH (21:12)
[2023-04-07] MEDS: ATORVASTATIN 40 MG TABLET PO SCH (21:13)
[2023-04-07] MEDS: DOXAZOSIN MESYLATE (1 MG) 1 MG TABLET PO SCH (21:14)
[2023-04-07] MEDS: SENNOSIDES 8.6 MG TABLET PO SCH (21:14)
[2023-04-07] MEDS: INSULIN REGULAR, HUMAN 100 UNIT/ML 3 ML VIAL SQ PRN (21:28)
[2023-04-07] MEDS: BLOOD SUGAR DIAGNOSTIC 1 EACH STRIP IN SCH (21:28)
[2023-04-07] MEDS ORDERED: MIRTAZAPINE 15 MG TABLET PO SCH (22:00)
[2023-04-08] VITALS: BP 111/56; TEMP 97.5; O2SAT 96
[2023-04-08 04:00] VITALS: BP 118/56; TEMP 97.7; O2SAT 95
[2023-04-08 07:19] LABS: BASOPHILS % (AUTO) 0.6 % (0.0-2.0); EOSINOPHILS # (AUTO) 0.7 K/uL (0.0-0.7); EOSINOPHILS % (AUTO) 15.1 % (0.0-6.0); HEMATOCRIT 32 % (33-45); HEMOGLOBIN 10.9 g/dL (11.5-14.8); LYMPHOCYTES # (AUTO) 1.3 K/uL (0.8-4.8); LYMPHOCYTES % (AUTO) 26.1 % (20.0-44.0); MEAN CORPUSCULAR HEMOGLOBIN 34 PG (26.0-33.0); MEAN CORPUSCULAR HGB CONC 34 g/dl (31.0-36.0); MEAN CORPUSCULAR VOLUME 99 fL (82-100); MONOCYTES # (AUTO) 0.6 K/uL (0.1-1.30); MONOCYTES % (AUTO) 12.4 % (2.0-12.0); NEUTROPHILS # (AUTO) 2.2 K/uL (1.8-8.9); NEUTROPHILS % (AUTO) 45.8 % (43.0-81.0); PLATELET COUNT (AUTO) 124 K/uL (150-450); RED BLOOD CELL COUNT(AUTO) 3.27 MIL/uL (4.0-5.2); RED CELL DISTRIBUTION WIDTH 15.8 % (11.5-15.0); WHITE BLOOD COUNT (AUTO) 4.9 K/uL (4.3-11.0)
[2023-04-08 07:46] LABS: CALCIUM, SERUM 8.6 mg/dL (8.5-10.1); CARBON DIOXIDE 23 mmol/L (21-32); CHLORIDE 106 mmol/L (98-107); CREATININE 3.6 mg/dL (0.6-1.3); GLUCOSE 93 mg/dL (74-106); PHOSPHORUS 5.2 mg/dL (2.5-4.9); POTASSIUM 4.1 mmol/L (3.5-5.1); SODIUM SERUM 140 mmol/L (136-145); UREA NITROGEN, BLOOD 46 mg/dL (7-18)
[2023-04-08 08:00] VITALS: BP 150/68; TEMP 97.9; O2SAT 96
[2023-04-08] MEDS: ASPIRIN EC 81 MG TABLET.DR PO SCH (08:10)
[2023-04-08] MEDS: VIT B CMPLX 3/FA/VIT C/BIOTIN 1 TAB TABLET PO SCH (08:11)
[2023-04-08] MEDS: ALLOPURINOL 100 MG TABLET PO SCH (08:11)
[2023-04-08] MEDS: DOCUSATE SODIUM 100 MG CAPSULE PO SCH (08:15)
[2023-04-08] MEDS: CYANOCOBALAMIN 500 MCG TABLET PO SCH (08:22)
[2023-04-08] MEDS: PROSOURCE / PROSTAT (PYXIS) 30 ML UDC PO SCH (08:47)
[2023-04-08] MEDS ORDERED: NITROGLYCERIN 0.4 MG/TAB BOTTLE ONE (11:16)
[2023-04-08] MEDS ORDERED: METOPROLOL TARTRATE INJ 5 MG/5 ML AMPUL ONE ×2 (11:16→11:54)
[2023-04-08] MEDS ORDERED: IOHEXOL-350 100 ML VIAL IV ONE (11:16)
[2023-04-08] MEDS ORDERED: CT SWABBABLE VALVE TRANS SET 1 EA INFUS.SET MC ONE (11:16)
[2023-04-08] MEDS ORDERED: IV NS 0.9% 250 ML IV ONE (11:17)
[2023-04-08] MEDS: METOPROLOL TARTRATE INJ 5 MG/5 ML AMPUL IVP PRN (11:40)
[2023-04-08] MEDS: NITROGLYCERIN 0.4 MG/TAB BOTTLE SL ONE (11:59)
[2023-04-08 12:00] VITALS: BP 133/54; TEMP 98; O2SAT 96
[2023-04-08 16:00] VITALS: BP 143/60; TEMP 98; O2SAT 96
[2023-04-08 20:00] VITALS: BP 105/62; TEMP 98; O2SAT 100
[2023-04-09] VITALS: BP 129/59; TEMP 98; O2SAT 100
[2023-04-09 04:00] VITALS: BP 139/60; TEMP 97.9; O2SAT 100
[2023-04-09 05:43] LABS: BASOPHILS % (AUTO) 0.8 % (0.0-2.0); EOSINOPHILS # (AUTO) 0.6 K/uL (0.0-0.7); EOSINOPHILS % (AUTO) 11.8 % (0.0-6.0); HEMATOCRIT 33 % (33-45); HEMOGLOBIN 11.5 g/dL (11.5-14.8); LYMPHOCYTES # (AUTO) 0.9 K/uL (0.8-4.8); MEAN CORPUSCULAR HEMOGLOBIN 34 PG (26.0-33.0); MEAN CORPUSCULAR HGB CONC 34 g/dl (31.0-36.0); MEAN CORPUSCULAR VOLUME 99 fL (82-100); MONOCYTES # (AUTO) 0.6 K/uL (0.1-1.30); MONOCYTES % (AUTO) 11.8 % (2.0-12.0); NEUTROPHILS # (AUTO) 2.8 K/uL (1.8-8.9); NEUTROPHILS % (AUTO) 57.6 % (43.0-81.0); PLATELET COUNT (AUTO) 116 K/uL (150-450); RED CELL DISTRIBUTION WIDTH 15.5 % (11.5-15.0); WHITE BLOOD COUNT (AUTO) 4.9 K/uL (4.3-11.0)
[2023-04-09 05:54] LABS: CALCIUM, SERUM 8.3 mg/dL (8.5-10.1); CARBON DIOXIDE 31 mmol/L (21-32); CHLORIDE 102 mmol/L (98-107); CREATININE 2.5 mg/dL (0.6-1.3); GLUCOSE 92 mg/dL (74-106); POTASSIUM 3.4 mmol/L (3.5-5.1); SODIUM SERUM 139 mmol/L (136-145); UREA NITROGEN, BLOOD 24 mg/dL (7-18)
[2023-04-09 08:00] VITALS: BP 153/63; TEMP 98.8; O2SAT 100
[2023-04-09] MEDS: POTASSIUM CHLORIDE 20 MEQ TAB.PRT.SR PO SCH (10:23)
[2023-04-09 12:00] VITALS: BP 156/60; TEMP 98.6; O2SAT 100
[2023-04-09] MEDS: TRAMADOL HCL 50 MG TABLET PO PRN (12:41)
[2023-04-09 16:00] VITALS: BP 163/63; TEMP 98.4; O2SAT 97
[2023-04-09 20:00] VITALS: BP 153/64; TEMP 98.6; O2SAT 100
[2023-04-10] VITALS: BP 141/73; TEMP 98.9; O2SAT 100
[2023-04-10 04:00] VITALS: BP 142/68; TEMP 98; O2SAT 100
[2023-04-10 06:40] LABS: BASOPHILS % (AUTO) 0.7 % (0.0-2.0); EOSINOPHILS # (AUTO) 0.7 K/uL (0.0-0.7); EOSINOPHILS % (AUTO) 13.7 % (0.0-6.0); HEMATOCRIT 34 % (33-45); HEMOGLOBIN 11.7 g/dL (11.5-14.8); LYMPHOCYTES % (AUTO) 20.4 % (20.0-44.0); MEAN CORPUSCULAR HEMOGLOBIN 34 PG (26.0-33.0); MEAN CORPUSCULAR HGB CONC 34 g/dl (31.0-36.0); MEAN CORPUSCULAR VOLUME 100 fL (82-100); MONOCYTES # (AUTO) 0.7 K/uL (0.1-1.30); MONOCYTES % (AUTO) 15.6 % (2.0-12.0); NEUTROPHILS # (AUTO) 2.4 K/uL (1.8-8.9); NEUTROPHILS % (AUTO) 49.6 % (43.0-81.0); PLATELET COUNT (AUTO) 125 K/uL (150-450); RED BLOOD CELL COUNT(AUTO) 3.44 MIL/uL (4.0-5.2); RED CELL DISTRIBUTION WIDTH 15.6 % (11.5-15.0); WHITE BLOOD COUNT (AUTO) 4.8 K/uL (4.3-11.0)
[2023-04-10 07:35] LABS: CALCIUM, SERUM 8.3 mg/dL (8.5-10.1); CARBON DIOXIDE 28 mmol/L (21-32); CHLORIDE 102 mmol/L (98-107); CREATININE 3.6 mg/dL (0.6-1.3); GLUCOSE 104 mg/dL (74-106); POTASSIUM 4.5 mmol/L (3.5-5.1); SODIUM SERUM 139 mmol/L (136-145); UREA NITROGEN, BLOOD 39 mg/dL (7-18)
[2023-04-10 08:00] VITALS: BP 147/60; TEMP 98.8; O2SAT 96
[2023-04-10 12:00] VITALS: BP 151/65; TEMP 98.2; O2SAT 96
[2023-04-10 16:00] VITALS: BP 134/61; TEMP 97.9; O2SAT 98
[2023-04-10] MEDS: HYDROCODONE/APAP 5/325MG TABLET PO PRN (18:23)
[2023-04-10 20:00] VITALS: BP 137/60; TEMP 98.1; O2SAT 97
[2023-04-11] VITALS (20 sets, daily range): BP systolic 105–208; BP diastolic 53–157; TEMP 97.7–98.8; O2SAT 97–100
[2023-04-11 07:01] LABS: BASOPHILS % (AUTO) 0.6 % (0.0-2.0); EOSINOPHILS # (AUTO) 0.7 K/uL (0.0-0.7); EOSINOPHILS % (AUTO) 16.7 % (0.0-6.0); HEMATOCRIT 32 % (33-45); HEMOGLOBIN 10.9 g/dL (11.5-14.8); LYMPHOCYTES # (AUTO) 0.9 K/uL (0.8-4.8); LYMPHOCYTES % (AUTO) 20.6 % (20.0-44.0); MEAN CORPUSCULAR HEMOGLOBIN 34 PG (26.0-33.0); MEAN CORPUSCULAR HGB CONC 34 g/dl (31.0-36.0); MEAN CORPUSCULAR VOLUME 100 fL (82-100); MONOCYTES # (AUTO) 0.6 K/uL (0.1-1.30); MONOCYTES % (AUTO) 13.5 % (2.0-12.0); NEUTROPHILS # (AUTO) 2.2 K/uL (1.8-8.9); NEUTROPHILS % (AUTO) 48.6 % (43.0-81.0); PLATELET COUNT (AUTO) 94 K/uL (150-450); RED CELL DISTRIBUTION WIDTH 15.4 % (11.5-15.0); WHITE BLOOD COUNT (AUTO) 4.5 K/uL (4.3-11.0)
[2023-04-11 07:39] LABS: CALCIUM, SERUM 8.4 mg/dL (8.5-10.1); CARBON DIOXIDE 23 mmol/L (21-32); CHLORIDE 102 mmol/L (98-107); CREATININE 3.2 mg/dL (0.6-1.3); GLUCOSE 93 mg/dL (74-106); POTASSIUM 4.1 mmol/L (3.5-5.1); SODIUM SERUM 136 mmol/L (136-145); UREA NITROGEN, BLOOD 26 mg/dL (7-18)
[2023-04-11 08:34] LABS: ANISOCYTOSIS 1+; BASOPHILS % (MANUAL) 0 % (0.0-2.0); EOSINOPHILS % (MANUAL) 19 % (0-4); LYMPHOCYTES % (MANUAL) 18 % (16-48); MONOCYTES % (MANUAL) 6 % (0-11.0); NEUTROPHILS % (MANUAL) 57 (42-76); OVALOCYTES 1+; PLATELET ESTIMATE DECREASED
[2023-04-11] MEDS ORDERED: IODIXANOL 150 ML IV ONE (12:02)
[2023-04-11] MEDS ORDERED: LIDOCAINE HCL/PF 1% 30 ML SDV ONE (12:02)
[2023-04-11] MEDS ORDERED: IV NS 0.9% 1,000 ML ONE (12:03)
[2023-04-11] MEDS ORDERED: IV SET PRIMARY PUMP SET 1 EA INFUS.SET MC ONE (12:03)
[2023-04-11] MEDS ORDERED: NITROGLYCERIN IN 5 % DEXTROSE 250 ML IV ONE (12:03)
[2023-04-11] MEDS ORDERED: MIDAZOLAM HCL 2 MG/2ML VIAL ONE (12:44)
[2023-04-11] MEDS ORDERED: FENTANYL PF 100MCG/2ML AMPUL ONE (12:44)
[2023-04-11 14:07] LABS: HEPATITIS B SURFACE AB Non Reactive (.)
[2023-04-11 16:13] LABS: RHEUMATOID FACTOR SCREEN NEGATIVE (NEGATIVE)
[2023-04-11] MEDS: CLONIDINE HCL 0.1 MG TABLET PO ONE (18:18)
[2023-04-11 19:10] LABS: THYROID STIMULATING HORMONE 2.727 uIU/mL (0.358-3.74)
[2023-04-12] VITALS (11 sets, daily range): BP systolic 87–143; BP diastolic 46–83; TEMP 97.2–98.8; O2SAT 97–100
[2023-04-12 04:25] LABS: BASOPHILS % (AUTO) 0.6 % (0.0-2.0); EOSINOPHILS # (AUTO) 0.5 K/uL (0.0-0.7); EOSINOPHILS % (AUTO) 11.1 % (0.0-6.0); HEMATOCRIT 32 % (33-45); HEMOGLOBIN 10.7 g/dL (11.5-14.8); LYMPHOCYTES # (AUTO) 0.6 K/uL (0.8-4.8); LYMPHOCYTES % (AUTO) 14.4 % (20.0-44.0); MEAN CORPUSCULAR HEMOGLOBIN 34 PG (26.0-33.0); MEAN CORPUSCULAR HGB CONC 34 g/dl (31.0-36.0); MEAN CORPUSCULAR VOLUME 99 fL (82-100); MONOCYTES # (AUTO) 0.4 K/uL (0.1-1.30); NEUTROPHILS # (AUTO) 2.7 K/uL (1.8-8.9); NEUTROPHILS % (AUTO) 63.9 % (43.0-81.0); PLATELET COUNT (AUTO) 101 K/uL (150-450); RED BLOOD CELL COUNT(AUTO) 3.18 MIL/uL (4.0-5.2); WHITE BLOOD COUNT (AUTO) 4.3 K/uL (4.3-11.0)
[2023-04-12 04:42] LABS: CALCIUM, SERUM 8.4 mg/dL (8.5-10.1); CARBON DIOXIDE 24 mmol/L (21-32); CHLORIDE 103 mmol/L (98-107); CREATININE 4.1 mg/dL (0.6-1.3); GLUCOSE 197 mg/dL (74-106); POTASSIUM 4.3 mmol/L (3.5-5.1); SODIUM SERUM 135 mmol/L (136-145); UREA NITROGEN, BLOOD 43 mg/dL (7-18)
[2023-04-12] MEDS ORDERED: NEPRO VAN 237 ML CAN PO PRN (08:00)
[2023-04-12 08:07] LABS: *ANA ANTI-CENTROMERE B AB <0.2 AI (0.0-0.9); *ANA ANTI-DNA(DS) AB, QN <1 IU/mL (0-9); *ANA ANTI-JO-1 <0.2 AI (0.0-0.9); *ANA ANTICHROMATIN ANTIBODY <0.2 AI (0.0-0.9); *ANA RNP ANTIBODIES 0.2 AI (0.0-0.9); *ANA SJOGREN'S ANTI-SS-A <0.2 AI (0.0-0.9); *ANA SJOGREN'S ANTI-SS-B <0.2 AI (0.0-0.9); *ANAANTI-SCLERODERMA-70 AB <0.2 AI (0.0-0.9); *ANASMITH AB <0.2 AI (0.0-0.9); FOLIC ACID > 20.0 ng/mL (>3.0); IMMUNOGLOBULIN A, SERUM 362 mg/dL (64-422); IMMUNOGLOBULIN G, SERUM 1214 mg/dL (586-1602); IMMUNOGLOBULIN M, SERUM 78 mg/dL (26-217)
[2023-04-12 12:07] LABS: *SPE A/G RATIO 0.9 (0.7-1.7); *SPE ALBUMIN 2.9 g/dL (2.9-4.4); *SPE ALPHA-1-GLOBULIN 0.3 g/dL (0.0-0.4); *SPE ALPHA-2-GLOBULIN 0.8 g/dL (0.4-1.0); *SPE BETA GLOBULIN 0.9 g/dL (0.7-1.3); *SPE GLOBULIN, TOTAL 3.3 g/dL (2.2-3.9); *SPE M-SPIKE Not Observed g/dL (Not Observed); *SPE PROTEIN TOTAL 6.2 g/dL (6.0-8.5); *SPEGAMMA GLOBULIN 1.3 g/dL (0.4-1.8)
[2023-04-12 13:09] LABS: FREE KAPPA LT CHAINS SERUM 171.8 mg/L (3.3-19.4); FREE LAMBDA LT CHAIN SERUM 84.1 mg/L (5.7-26.3); KAPPA/LAMBDA RATIO SERUM 2.04 (0.26-1.65)
[2023-04-12 14:12] LABS: HEPATITIS B SURFACE AB Non Reactive (.)
[2023-04-13] VITALS (30 sets, daily range): BP systolic 98–152; BP diastolic 44–93; TEMP 97.6–98.6; O2SAT 98–100
[2023-04-13 06:43] LABS: BASOPHILS % (AUTO) 0.9 % (0.0-2.0); EOSINOPHILS # (AUTO) 0.7 K/uL (0.0-0.7); EOSINOPHILS % (AUTO) 13.5 % (0.0-6.0); HEMATOCRIT 32 % (33-45); HEMOGLOBIN 10.9 g/dL (11.5-14.8); LYMPHOCYTES # (AUTO) 0.9 K/uL (0.8-4.8); LYMPHOCYTES % (AUTO) 18.2 % (20.0-44.0); MEAN CORPUSCULAR HEMOGLOBIN 34 PG (26.0-33.0); MEAN CORPUSCULAR HGB CONC 34 g/dl (31.0-36.0); MEAN CORPUSCULAR VOLUME 100 fL (82-100); MONOCYTES # (AUTO) 0.6 K/uL (0.1-1.30); MONOCYTES % (AUTO) 11.6 % (2.0-12.0); NEUTROPHILS # (AUTO) 2.8 K/uL (1.8-8.9); NEUTROPHILS % (AUTO) 55.8 % (43.0-81.0); PLATELET COUNT (AUTO) 92 K/uL (150-450); RED BLOOD CELL COUNT(AUTO) 3.23 MIL/uL (4.0-5.2)
[2023-04-13 07:06] LABS: CALCIUM, SERUM 8.5 mg/dL (8.5-10.1); CARBON DIOXIDE 27 mmol/L (21-32); CHLORIDE 101 mmol/L (98-107); CREATININE 3.2 mg/dL (0.6-1.3); GLUCOSE 96 mg/dL (74-106); POTASSIUM 3.7 mmol/L (3.5-5.1); SODIUM SERUM 138 mmol/L (136-145); UREA NITROGEN, BLOOD 32 mg/dL (7-18)
[2023-04-13 07:42] LABS: INR 0.95 (0.91-1.10); PARTIAL THROMBOPLASTIN TIME 29.6 SEC (24.3-34.3); PROTHROMBIN TIME 10.1 SECS (9.2-11.1)
[2023-04-13] MEDS ORDERED: IV NS 0.9% 1,000 ML ONE (09:28)
[2023-04-13] MEDS ORDERED: SECONDARY IV SET 1 EA INFUS.SET MC ONE (09:29)
[2023-04-13] MEDS ORDERED: LIDOCAINE HCL/MPF 1% 30 ML VIAL IJ ONE (09:29)
[2023-04-13] MEDS ORDERED: IODIXANOL 150 ML IV ONE (09:29)
[2023-04-13] MEDS ORDERED: IODIXANOL 320MG/ML 50 ML IV ONE (09:53)
[2023-04-13 10:04] LABS: ANISOCYTOSIS 1+; BASOPHILS % (MANUAL) 0 % (0.0-2.0); EOSINOPHILS % (MANUAL) 14 % (0-4); LYMPHOCYTES % (MANUAL) 15 % (16-48); MONOCYTES % (MANUAL) 10 % (0-11.0); NEUTROPHILS % (MANUAL) 61 (42-76); PLATELET ESTIMATE DECREASED
[2023-04-13] MEDS ORDERED: FENTANYL PF 100MCG/2ML AMPUL ONE (10:09)
[2023-04-13] MEDS ORDERED: MIDAZOLAM HCL 2 MG/2ML VIAL ONE (10:09)
[2023-04-13] MEDS ORDERED: HEPARIN SODIUM, PORCINE 1,000 UNIT/ML VIAL ONE (10:18)
[2023-04-13] MEDS ORDERED: TICAGRELOR 90 MG TABLET PO ONE (10:28)
[2023-04-13] MEDS ORDERED: hydrALAZINE HCL IV 20 MG VIAL ONE (10:37)
[2023-04-13] MEDS ORDERED: ONDANSETRON HCL/PF 4 MG/2 ML VIAL IVP PRN (12:00)
[2023-04-13] MEDS: TICAGRELOR 90 MG TABLET PO SCH (16:54)
[2023-04-14] VITALS (21 sets, daily range): BP systolic 98–152; BP diastolic 44–134; TEMP 98–99.1; O2SAT 97–100
[2023-04-14 05:40] LABS: CALCIUM, SERUM 8.5 mg/dL (8.5-10.1); CARBON DIOXIDE 25 mmol/L (21-32); CHLORIDE 102 mmol/L (98-107); CREATININE 4.1 mg/dL (0.6-1.3); GLUCOSE 119 mg/dL (74-106); POTASSIUM 4.7 mmol/L (3.5-5.1); SODIUM SERUM 136 mmol/L (136-145); UREA NITROGEN, BLOOD 42 mg/dL (7-18)
[2023-04-14 06:18] LABS: BASOPHILS % (AUTO) 0.4 % (0.0-2.0); EOSINOPHILS # (AUTO) 0.6 K/uL (0.0-0.7); EOSINOPHILS % (AUTO) 10.7 % (0.0-6.0); HEMATOCRIT 32 % (33-45); LYMPHOCYTES # (AUTO) 0.8 K/uL (0.8-4.8); LYMPHOCYTES % (AUTO) 14.2 % (20.0-44.0); MEAN CORPUSCULAR HEMOGLOBIN 34 PG (26.0-33.0); MEAN CORPUSCULAR HGB CONC 34 g/dl (31.0-36.0); MEAN CORPUSCULAR VOLUME 101 fL (82-100); MONOCYTES # (AUTO) 0.7 K/uL (0.1-1.30); MONOCYTES % (AUTO) 11.4 % (2.0-12.0); NEUTROPHILS # (AUTO) 3.7 K/uL (1.8-8.9); NEUTROPHILS % (AUTO) 63.3 % (43.0-81.0); PLATELET COUNT (AUTO) 103 K/uL (150-450); RED CELL DISTRIBUTION WIDTH 15.1 % (11.5-15.0); WHITE BLOOD COUNT (AUTO) 5.9 K/uL (4.3-11.0)
[2023-04-14] MEDS: CLOPIDOGREL BISULFATE 300 MG TABLET PO ONE (17:38)
[2023-04-15 00:09] VITALS: BP 126/63; TEMP 98; O2SAT 99
[2023-04-15 05:00] VITALS: BP 118/62; TEMP 97.8; O2SAT 99
[2023-04-15 06:59] LABS: BASOPHILS % (AUTO) 0.5 % (0.0-2.0); EOSINOPHILS # (AUTO) 0.8 K/uL (0.0-0.7); EOSINOPHILS % (AUTO) 13.8 % (0.0-6.0); HEMATOCRIT 31 % (33-45); HEMOGLOBIN 10.5 g/dL (11.5-14.8); LYMPHOCYTES # (AUTO) 0.9 K/uL (0.8-4.8); MEAN CORPUSCULAR HEMOGLOBIN 34 PG (26.0-33.0); MEAN CORPUSCULAR HGB CONC 34 g/dl (31.0-36.0); MEAN CORPUSCULAR VOLUME 99 fL (82-100); MONOCYTES # (AUTO) 0.7 K/uL (0.1-1.30); MONOCYTES % (AUTO) 12.9 % (2.0-12.0); NEUTROPHILS # (AUTO) 3.2 K/uL (1.8-8.9); NEUTROPHILS % (AUTO) 56.8 % (43.0-81.0); PLATELET COUNT (AUTO) 91 K/uL (150-450); RED BLOOD CELL COUNT(AUTO) 3.08 MIL/uL (4.0-5.2); RED CELL DISTRIBUTION WIDTH 14.7 % (11.5-15.0); WHITE BLOOD COUNT (AUTO) 5.6 K/uL (4.3-11.0)
[2023-04-15 07:00] VITALS: BP 111/55; TEMP 98.6; O2SAT 97
[2023-04-15 07:00] LABS: CALCIUM, SERUM 8.7 mg/dL (8.5-10.1); CARBON DIOXIDE 30 mmol/L (21-32); CHLORIDE 99 mmol/L (98-107); CREATININE 3.1 mg/dL (0.6-1.3); GLUCOSE 90 mg/dL (74-106); POTASSIUM 3.6 mmol/L (3.5-5.1); SODIUM SERUM 137 mmol/L (136-145); UREA NITROGEN, BLOOD 34 mg/dL (7-18)
[2023-04-15] MEDS: TICAGRELOR 90 MG TABLET PO SCH (08:44)
[2023-04-15] MEDS ORDERED: CLOPIDOGREL BISULFATE 75 MG TABLET PO SCH (09:00)
[2023-04-15 09:56] LABS: EOSINOPHILS % (MANUAL) 9 % (0-4); LYMPHOCYTES % (MANUAL) 14 % (16-48); MONOCYTES % (MANUAL) 10 % (0-11.0); NEUTROPHILS % (MANUAL) 67 (42-76); PLATELET ESTIMATE DECREASED
[2023-04-15 09:57] LABS: ANISOCYTOSIS 1+
[2023-04-15] MEDS: MIDODRINE HCL (5MG) 5 MG TABLET PO SCH (12:35)
[2023-04-15] MEDS: IV NS 0.9% 250 ML IV ONE (12:36)
[2023-04-15 15:28] VITALS: BP 117/52; TEMP 97.6; O2SAT 96
[2023-04-15 16:00] VITALS: BP 126/53; TEMP 99.1; O2SAT 90
[2023-04-15 20:00] VITALS: BP 124/49; TEMP 98.8; O2SAT 98
[2023-04-16] VITALS (7 sets, daily range): BP systolic 122–164; BP diastolic 54–86; TEMP 98–98.7; O2SAT 97–100
[2023-04-16 06:23] LABS: BASOPHILS % (AUTO) 0.8 % (0.0-2.0); EOSINOPHILS # (AUTO) 0.9 K/uL (0.0-0.7); EOSINOPHILS % (AUTO) 15.8 % (0.0-6.0); HEMATOCRIT 31 % (33-45); HEMOGLOBIN 10.6 g/dL (11.5-14.8); LYMPHOCYTES # (AUTO) 0.9 K/uL (0.8-4.8); MEAN CORPUSCULAR HEMOGLOBIN 34 PG (26.0-33.0); MEAN CORPUSCULAR HGB CONC 34 g/dl (31.0-36.0); MEAN CORPUSCULAR VOLUME 101 fL (82-100); MONOCYTES # (AUTO) 0.7 K/uL (0.1-1.30); MONOCYTES % (AUTO) 12.1 % (2.0-12.0); NEUTROPHILS % (AUTO) 54.3 % (43.0-81.0); PLATELET COUNT (AUTO) 112 K/uL (150-450); RED BLOOD CELL COUNT(AUTO) 3.12 MIL/uL (4.0-5.2); RED CELL DISTRIBUTION WIDTH 14.7 % (11.5-15.0); WHITE BLOOD COUNT (AUTO) 5.5 K/uL (4.3-11.0)
[2023-04-16 06:50] LABS: CALCIUM, SERUM 8.5 mg/dL (8.5-10.1); CARBON DIOXIDE 27 mmol/L (21-32); CHLORIDE 99 mmol/L (98-107); CREATININE 4.2 mg/dL (0.6-1.3); GLUCOSE 95 mg/dL (74-106); POTASSIUM 4.1 mmol/L (3.5-5.1); SODIUM SERUM 137 mmol/L (136-145); UREA NITROGEN, BLOOD 53 mg/dL (7-18)
[2023-04-16] MEDS: FUROSEMIDE 20 MG TABLET PO SCH (08:45)
[2023-04-16] MEDS ORDERED: IOHEXOL-350 100 ML VIAL IV ONE (10:27)
[2023-04-16] MEDS ORDERED: IV NS 0.9% 250 ML IV ONE (10:27)
[2023-04-16] MEDS: MAGNESIUM HYDROXIDE 30 ML UDC PO PRN (21:51)
[2023-04-17] VITALS (11 sets, daily range): BP systolic 92–135; BP diastolic 42–70; TEMP 97.9–100; O2SAT 95–99
[2023-04-17 08:24] LABS: CALCIUM, SERUM 8.7 mg/dL (8.5-10.1); CARBON DIOXIDE 25 mmol/L (21-32); CHLORIDE 98 mmol/L (98-107); CREATININE 3.6 mg/dL (0.6-1.3); GLUCOSE 111 mg/dL (74-106); POTASSIUM 3.5 mmol/L (3.5-5.1); SODIUM SERUM 135 mmol/L (136-145); UREA NITROGEN, BLOOD 37 mg/dL (7-18)
[2023-04-17] MEDS: ACETAMINOPHEN 325 MG TABLET PO PRN (08:41)
[2023-04-17 14:11] LABS: BASOPHILS % (AUTO) 0.4 % (0.0-2.0); EOSINOPHILS # (AUTO) 0.4 K/uL (0.0-0.7); EOSINOPHILS % (AUTO) 6.3 % (0.0-6.0); HEMATOCRIT 32 % (33-45); HEMOGLOBIN 10.7 g/dL (11.5-14.8); LYMPHOCYTES # (AUTO) 0.5 K/uL (0.8-4.8); LYMPHOCYTES % (AUTO) 7.3 % (20.0-44.0); MEAN CORPUSCULAR HEMOGLOBIN 34 PG (26.0-33.0); MEAN CORPUSCULAR HGB CONC 34 g/dl (31.0-36.0); MEAN CORPUSCULAR VOLUME 100 fL (82-100); MONOCYTES # (AUTO) 0.4 K/uL (0.1-1.30); NEUTROPHILS # (AUTO) 5.1 K/uL (1.8-8.9); PLATELET COUNT (AUTO) 111 K/uL (150-450); RED BLOOD CELL COUNT(AUTO) 3.19 MIL/uL (4.0-5.2); RED CELL DISTRIBUTION WIDTH 14.8 % (11.5-15.0); WHITE BLOOD COUNT (AUTO) 6.3 K/uL (4.3-11.0)
[2023-04-17 19:42] LABS: APPEARANCE,URINE CLEAR (CLEAR); BILIRUBIN,URINE NEGATIVE (NEGATIVE); BLOOD, URINE 1+ Ery/uL (NEGATIVE); COLOR,URINE YELLOW (YELLOW); KETONES,URINE NEGATIVE (NEGATIVE); LEUKOCYTE ESTERASE ,URINE 1+ (NEGATIVE); NITRITE, URINE NEGATIVE (NEGATIVE); PH,URINE 7.5 (5.0-8.0); PROTEIN,URINE 2+ mg/dl (NEGATIVE); UGLUCOSE NEGATIVE (NEGATIVE); UROBILINOGEN,URINE 0.2 EU/dL (0.2)
[2023-04-17 19:56] LABS: ADD URINE CULTURE YES; BACTERIA,URINE 2+ /HPF (None Seen); MUCUS,URINE Moderate /LPF (None Seen)
[2023-04-18 07:37] LABS: BASOPHILS % (AUTO) 1.1 % (0.0-2.0); EOSINOPHILS # (AUTO) 0.7 K/uL (0.0-0.7); EOSINOPHILS % (AUTO) 15.3 % (0.0-6.0); HEMATOCRIT 31 % (33-45); HEMOGLOBIN 10.5 g/dL (11.5-14.8); LYMPHOCYTES # (AUTO) 0.8 K/uL (0.8-4.8); LYMPHOCYTES % (AUTO) 18.3 % (20.0-44.0); MEAN CORPUSCULAR HEMOGLOBIN 34 PG (26.0-33.0); MEAN CORPUSCULAR HGB CONC 34 g/dl (31.0-36.0); MEAN CORPUSCULAR VOLUME 99 fL (82-100); MONOCYTES # (AUTO) 0.6 K/uL (0.1-1.30); MONOCYTES % (AUTO) 12.1 % (2.0-12.0); NEUTROPHILS # (AUTO) 2.4 K/uL (1.8-8.9); NEUTROPHILS % (AUTO) 53.2 % (43.0-81.0); PLATELET COUNT (AUTO) 141 K/uL (150-450); RED BLOOD CELL COUNT(AUTO) 3.11 MIL/uL (4.0-5.2); RED CELL DISTRIBUTION WIDTH 14.1 % (11.5-15.0); WHITE BLOOD COUNT (AUTO) 4.6 K/uL (4.3-11.0)
[2023-04-18 08:00] VITALS: BP 119/56; TEMP 98.4; O2SAT 98
[2023-04-18 08:09] LABS: CALCIUM, SERUM 8.7 mg/dL (8.5-10.1); CARBON DIOXIDE 24 mmol/L (21-32); CHLORIDE 97 mmol/L (98-107); CREATININE 4.8 mg/dL (0.6-1.3); GLUCOSE 170 mg/dL (74-106); POTASSIUM 3.8 mmol/L (3.5-5.1); SODIUM SERUM 134 mmol/L (136-145); UREA NITROGEN, BLOOD 56 mg/dL (7-18)
[2023-04-18] MEDS ORDERED: CEFT1FRO2 IV (10:03)
[2023-04-18] MEDS ORDERED: SACU1TAB PO (10:03)
[2023-04-18] MEDS ORDERED: SEVE800T7 PO (10:03)
[2023-04-18] MEDS ORDERED: NUT.237L67 PO (10:03)
[2023-04-18] MEDS ORDERED: LINA5TAB PO (10:03)
[2023-04-18] MEDS ORDERED: PYRI-6 PO (10:03)
[2023-04-18] MEDS ORDERED: MIDO5TAB4 PO (10:03)
[2023-04-18] MEDS ORDERED: RIFA300C4 PO (10:03)
[2023-04-18] MEDS ORDERED: FURO20TA4 PO (10:03)
[2023-04-18] MEDS ORDERED: ISON300T27 PO (10:03)
[2023-04-18] MEDS ORDERED: FERR325T28 PO (10:03)
[2023-04-18] MEDS ORDERED: DOXA1TAB4 PO (10:03)
[2023-04-18] MEDS ORDERED: SENN-175 PO (10:03)
[2023-04-18] MEDS ORDERED: PANT40TA49 PO (10:03)
[2023-04-18] MEDS ORDERED: Prosource PO (10:03)
[2023-04-18] MEDS ORDERED: TICA90TA PO (10:04)
[2023-04-18 10:15] VITALS: BP 120/52
[2023-04-18 10:18] VITALS: BP 100/53
[2023-04-18 10:23] VITALS: BP 95/46
[2023-04-18] MEDS: CEFTRIAXONE 1 G in IV D5W 50 ML IV SCH (11:56)
[2023-04-18 16:00] VITALS: BP 114/56; TEMP 99.1; O2SAT 98
[2023-04-18 17:00] VITALS: BP 114/50
== END 2023-04-18 18:33 | DRG 321 ==
LOC: ER 23:09 → TELE1 04-07 04:15 → ICU 04-11 13:32 → TELE1 04-12 06:02 → ICU 04-13 11:27 → MED 04-14 20:05 → TELE 04-14 20:20 → MED 04-17 09:35
PROVIDERS: ADMIT Nurse Practitioner Acute Care; ATTEND Nurse Practitioner Acute Care
PROC: 5A1D70Z Performance of Urinary Filtration, Intermittent, Less than 6 Hours Per Day (ICD-10-PCS; principal; 2023-04-08)
PROC: 4A023N7 Measurement of Cardiac Sampling and Pressure, Left Heart, Percutaneous Approach (ICD-10-PCS; 2023-04-11)
PROC: B211YZZ Fluoroscopy of Multiple Coronary Arteries using Other Contrast (ICD-10-PCS; 2023-04-11)
PROC: 027135Z Dilation of Coronary Artery, Two Arteries with Two Drug-eluting Intraluminal Devices, Percutaneous Approach (ICD-10-PCS; 2023-04-13)
PROC: B41GYZZ Fluoroscopy of Left Lower Extremity Arteries using Other Contrast (ICD-10-PCS; 2023-04-13)
PROC: B211YZZ Fluoroscopy of Multiple Coronary Arteries using Other Contrast (ICD-10-PCS; 2023-04-13)
DX: I13.2 Hypertensive heart and chronic kidney disease with heart failure and with stage 5 chronic kidney disease, or end stage renal disease (principal); I21.A1 Myocardial infarction type 2; N18.6 End stage renal disease; I50.23 Acute on chronic systolic (congestive) heart failure; D61.818 Other pancytopenia; E44.1 Mild protein-calorie malnutrition; I25.110 Atherosclerotic heart disease of native coronary artery with unstable angina pectoris; E11.22 Type 2 diabetes mellitus with diabetic chronic kidney disease; D63.8 Anemia in other chronic diseases classified elsewhere; E66.01 Morbid (severe) obesity due to excess calories; E78.5 Hyperlipidemia, unspecified; E88.09 Other disorders of plasma-protein metabolism, not elsewhere classified; I25.2 Old myocardial infarction; Z79.82 Long term (current) use of aspirin; Z79.84 Long term (current) use of oral hypoglycemic drugs; Z20.822 Contact with and (suspected) exposure to COVID-19; Z68.23 Body mass index [BMI] 23.0-23.9, adult; N25.0 Renal osteodystrophy; D69.6 Thrombocytopenia, unspecified; D72.821 Monocytosis (symptomatic); K29.80 Duodenitis without bleeding; Z90.49 Acquired absence of other specified parts of digestive tract; Z99.2 Dependence on renal dialysis
CPT/HCPCS: 36415; 71045-TC; 74178; 74181-TC; 75574; 76700-TC; 80048-TC; 80076-TC; 81001; 82272-TC; 82607-TC; 82728-TC; 82784; 82962-TC; 83540-TC; 83735-TC; 83880; 84100-TC; 84155; 84165; 84443-TC; 84484-TC; 85025-TC; 85347; 85610-TC; 85730-TC; 86225; 86235; 86301; 86334; 86403-TC; 86431-TC; 86706; 86803; 87040-TC; 87086-TC; 87340; 90935-TC; 97112-TC; 97116-TC; 97530-TC; A4223; C1725; C1769; C1887; C1894; C9600; C9601; G0378; G0500; J0360; J0696; J1644; J1815; J2250; J3010; J3490; J7030; J7050; J7060; Q9967

== ENCOUNTER 2023-05-13 22:09 | Inpatient (IN) | payer MEDICARE, OTHER ==
[~2023-05-13] VITALS: Ht 157.5 cm; Wt 50.3 kg
[~2023-05-13 22:09] MED LIST changes: +ALBU2.5V13 IH; +AMIN30LI2 PO; -AMLO5TAB4 PO; -ASPI-1169 PO; +ASPI-1420 PO; -BISA10SU11 RC; +CARV12.52 PO; -CARV25TA2 PO; +CEFT1FRO2 IV; -CETI-90 PO; +CHOL100043 PO; -CYAN10006 IM; -DOXA1TAB2 PO; +DOXA1TAB4 PO; -FERR325T23 PO; +FERR325T28 PO; -FURO-144 PO; +FURO20TA4 PO; -HYDR-4077 PO; +IPRA3AMP23 IH; -ISON300T19 PO; +ISON300T27 PO; +LINA5TAB PO; -MAGN400O6 PO; -MEGE400O4 PO; +MIDO5TAB4 PO; -NA P133E RC; +NUT.237L67 PO; +PANT40TA49 PO; +PYRI-6 PO; -PYRI25TA3 PO; +Prosource PO; +SENN-175 PO; -SENN-261 PO; +SEVE800T7 PO; -SEVE800T8 PO; -SITA50TA PO; +TICA90TA PO
[2023-05-13 23:27] LABS: BASOPHILS # (AUTO) 0.1 K/uL (0.0-0.2); BASOPHILS % (AUTO) 1.2 % (0.0-2.0); EOSINOPHILS # (AUTO) 0.6 K/uL (0.0-0.7); EOSINOPHILS % (AUTO) 11.9 % (0.0-6.0); HEMATOCRIT 28 % (33-45); HEMOGLOBIN 9.6 g/dL (11.5-14.8); LYMPHOCYTES # (AUTO) 0.8 K/uL (0.8-4.8); LYMPHOCYTES % (AUTO) 15.1 % (20.0-44.0); MEAN CORPUSCULAR HEMOGLOBIN 35 PG (26.0-33.0); MEAN CORPUSCULAR HGB CONC 34 g/dl (31.0-36.0); MEAN CORPUSCULAR VOLUME 103 fL (82-100); MONOCYTES # (AUTO) 0.5 K/uL (0.1-1.30); MONOCYTES % (AUTO) 8.8 % (2.0-12.0); NEUTROPHILS # (AUTO) 3.4 K/uL (1.8-8.9); PLATELET COUNT (AUTO) 72 K/uL (150-450); RED BLOOD CELL COUNT(AUTO) 2.74 MIL/uL (4.0-5.2); RED CELL DISTRIBUTION WIDTH 16.6 % (11.5-15.0); WHITE BLOOD COUNT (AUTO) 5.4 K/uL (4.3-11.0)
[2023-05-13 23:49] LABS: LACTIC ACID 1.3 mmol/L (0.4-2.0)
[2023-05-13 23:56] LABS: ALANINE AMINOTRANSFERASE 14 U/L (12-78); ALBUMIN 2.7 g/dL (3.4-5.0); ALKALINE PHOSPHATASE 97 U/L (46-116); ASPARTATE AMINOTRANSFERASE 18 U/L (15-37); BILIRUBIN,TOTAL 0.6 mg/dL (0.2-1.0); CALCIUM, SERUM 8.4 mg/dL (8.5-10.1); CARBON DIOXIDE 29 mmol/L (21-32); CHLORIDE 105 mmol/L (98-107); CREATININE 2.6 mg/dL (0.6-1.3); GLUCOSE 225 mg/dL (74-106); POTASSIUM 4.2 mmol/L (3.5-5.1); SODIUM SERUM 142 mmol/L (136-145); TOTAL PROTEIN, SERUM 6.9 g/dL (6.4-8.2); UREA NITROGEN, BLOOD 21 mg/dL (7-18)
[2023-05-14] VITALS (7 sets, daily range): BP systolic 123–186; BP diastolic 64–81; TEMP 97.9–99; O2SAT 96–99
[2023-05-14] MEDS ORDERED: ASPIRIN 325 MG TABLET ONE (00:50)
[2023-05-14] MEDS: ASPIRIN 325 MG TABLET PO ONE (00:52)
[2023-05-14] MEDS ORDERED: IV D5/0.45 NACL 1,000 ML IV PRN (01:00)
[2023-05-14] MEDS ORDERED: Z GUARD REMEDY 4 OZ OINT TP PRN (01:00)
[2023-05-14] MEDS ORDERED: MAGNESIUM HYDROXIDE 30 ML UDC PO PRN (01:00)
[2023-05-14] MEDS ORDERED: ZOLPIDEM TARTRATE 5 MG TABLET PO PRN (01:00)
[2023-05-14] MEDS ORDERED: ONDANSETRON HCL/PF 4 MG/2 ML VIAL IVP PRN (01:00)
[2023-05-14] MEDS ORDERED: ALBUTEROL FS 2.5 MG/0.5 ML VIAL.NEB IH PRN (01:00)
[2023-05-14] MEDS ORDERED: MAG HYDROX/AL HYDROX/SIMETH 30 ML UDC PO PRN (01:00)
[2023-05-14] MEDS ORDERED: ACETAMINOPHEN 325 MG TABLET PO PRN (01:00)
[2023-05-14] MEDS ORDERED: NEPRO VAN 237 ML CAN PO PRN (01:00)
[2023-05-14 01:58] LABS: ANISOCYTOSIS 1+; BASOPHILS % (MANUAL) 0 % (0.0-2.0); EOSINOPHILS % (MANUAL) 10 % (0-4); HYPOCHROMASIA 1+; LYMPHOCYTES % (MANUAL) 13 % (16-48); MONOCYTES % (MANUAL) 7 % (0-11.0); NEUTROPHILS % (MANUAL) 70 (42-76); PLATELET ESTIMATE DECREASED; STOMATOCYTES 1+
[2023-05-14] MEDS ORDERED: HEPARIN INFUSION/D5W 500 ML IV ONE (02:14)
[2023-05-14 03:26] LABS: PROTHROMBIN TIME 10.6 SECS (9.2-11.1)
[2023-05-14] MEDS ORDERED: HEPARIN SODIUM, PORCINE 5000 UNITS/1 ML VIAL ONE (03:48)
[2023-05-14] MEDS: HEPARIN SODIUM, PORCINE 5000 UNITS/1 ML VIAL IV ONE (03:56)
[2023-05-14] MEDS: HEPARIN INFUSION/D5W 500 ML IV PRN (04:12)
[2023-05-14 06:59] LABS: INR 1.05 (0.91-1.10); PROTHROMBIN TIME 11.1 SECS (9.2-11.1)
[2023-05-14] MEDS ORDERED: IPRATROPIUM NEB FS 0.5 MG/2.5 ML AMPUL.NEB NEB PRN (07:00)
[2023-05-14] MEDS ORDERED: ALBUTEROL FS 2.5 MG/0.5 ML VIAL.NEB NEB PRN (07:30)
[2023-05-14] MEDS: PANTOPRAZOLE 40 MG TABLET.DR PO SCH (07:30)
[2023-05-14] MEDS: SEVELAMER CARBONATE 800 MG TABLET PO SCH (07:34)
[2023-05-14 07:45] LABS: PARTIAL THROMBOPLASTIN TIME 89.8 SEC (24.3-34.3)
[2023-05-14] MEDS: CHOLECALCIFEROL 1,000 UNIT TABLET (VIT D3) PO SCH (09:00)
[2023-05-14] MEDS: ISOSORBIDE MONONITRATE (30MG) 30 MG TAB.SR.24H PO SCH (09:00)
[2023-05-14] MEDS: RIFAMPIN 300 MG CAPSULE PO SCH (09:00)
[2023-05-14] MEDS: PROSOURCE / PROSTAT (PYXIS) 30 ML UDC PO SCH (09:00)
[2023-05-14] MEDS: ISONIAZID (300 MG) 300 MG TABLET PO SCH (09:00)
[2023-05-14] MEDS ORDERED: Medication Not On Formulary EA (Ceftriaxone Na/Dextrose,Iso (Ceftriaxone 1 Gm Piggyback) IV SCH (09:00)
[2023-05-14] MEDS: ALLOPURINOL 100 MG TABLET PO SCH (09:00)
[2023-05-14] MEDS: MIDODRINE HCL (5MG) 5 MG TABLET PO SCH (09:00)
[2023-05-14] MEDS: DOCUSATE SODIUM 100 MG CAPSULE PO SCH (09:00)
[2023-05-14] MEDS ORDERED: HEPARIN INFUSION/D5W 500 ML IV PRN (09:00)
[2023-05-14] MEDS ORDERED: ISOSORBIDE MONONITRATE 60 MG TAB.SR.24H PO SCH (09:00)
[2023-05-14] MEDS: FERROUS SULFATE (325 MG) 325 MG/TAB TABLET PO SCH (09:00)
[2023-05-14] MEDS: SACUBITRIL/VALSARTAN 1 EACH TABLET PO SCH (09:00)
[2023-05-14] MEDS: CARVEDILOL 12.5 MG TABLET PO SCH (09:00)
[2023-05-14] MEDS: TICAGRELOR 90 MG TABLET PO SCH (09:00)
[2023-05-14] MEDS: FUROSEMIDE 20 MG TABLET PO SCH (09:00)
[2023-05-14] MEDS: PYRIDOXINE HCL 50 MG TABLET PO SCH (09:00)
[2023-05-14] MEDS: VIT B CMPLX 3/FA/VIT C/BIOTIN 1 TAB TABLET PO SCH (09:00)
[2023-05-14] MEDS: ASPIRIN EC 81 MG TABLET.DR PO SCH (09:00)
[2023-05-14] MEDS: CYANOCOBALAMIN 500 MCG TABLET PO SCH (09:00)
[2023-05-14] MEDS: MINOXIDIL (2.5MG) 2.5 MG TABLET PO SCH (09:29)
[2023-05-14] MEDS: CEFTRIAXONE 1 G in IV D5W 50 ML IV SCH (10:13)
[2023-05-14] MEDS ORDERED: DEXTROSE 50%-WATER 50 ML DISP.SYRIN IV PRN (10:30)
[2023-05-14] MEDS: BLOOD SUGAR DIAGNOSTIC 1 EACH STRIP IN SCH (11:59)
[2023-05-14] MEDS: INSULIN REGULAR, HUMAN 100 UNIT/ML 3 ML VIAL SQ PRN (17:45)
[2023-05-14] MEDS: DOXAZOSIN MESYLATE (1 MG) 1 MG TABLET PO SCH (21:35)
[2023-05-14] MEDS: ATORVASTATIN 40 MG TABLET PO SCH (21:36)
[2023-05-14] MEDS: SENNOSIDES 8.6 MG TABLET PO SCH (21:36)
[2023-05-14] MEDS: MIRTAZAPINE 15 MG TABLET PO SCH (21:36)
[2023-05-14] MEDS ORDERED: Medication Not On Formulary EA (Mirtazapine 7.5 MG) PO SCH (22:00)
[2023-05-15 04:39] VITALS: BP 156/75; TEMP 98.8; O2SAT 99
[2023-05-15 07:30] VITALS: BP 155/75; TEMP 98.4; O2SAT 99
[2023-05-15 07:36] LABS: BASOPHILS % (AUTO) 0.8 % (0.0-2.0); EOSINOPHILS # (AUTO) 0.7 K/uL (0.0-0.7); EOSINOPHILS % (AUTO) 14.9 % (0.0-6.0); HEMATOCRIT 26 % (33-45); LYMPHOCYTES # (AUTO) 0.9 K/uL (0.8-4.8); MEAN CORPUSCULAR HEMOGLOBIN 35 PG (26.0-33.0); MEAN CORPUSCULAR HGB CONC 34 g/dl (31.0-36.0); MEAN CORPUSCULAR VOLUME 103 fL (82-100); MONOCYTES # (AUTO) 0.5 K/uL (0.1-1.30); MONOCYTES % (AUTO) 11.1 % (2.0-12.0); NEUTROPHILS # (AUTO) 2.3 K/uL (1.8-8.9); NEUTROPHILS % (AUTO) 52.2 % (43.0-81.0); PLATELET COUNT (AUTO) 94 K/uL (150-450); RED BLOOD CELL COUNT(AUTO) 2.56 MIL/uL (4.0-5.2); RED CELL DISTRIBUTION WIDTH 16.3 % (11.5-15.0); WHITE BLOOD COUNT (AUTO) 4.5 K/uL (4.3-11.0)
[2023-05-15 08:04] LABS: CALCIUM, SERUM 8.3 mg/dL (8.5-10.1); CARBON DIOXIDE 26 mmol/L (21-32); CHLORIDE 109 mmol/L (98-107); CREATININE 3.7 mg/dL (0.6-1.3); GLUCOSE 119 mg/dL (74-106); MAGNESIUM 1.9 mg/dL (1.8-2.4); PHOSPHORUS 4.9 mg/dL (2.5-4.9); POTASSIUM 4.3 mmol/L (3.5-5.1); SODIUM SERUM 142 mmol/L (136-145); UREA NITROGEN, BLOOD 38 mg/dL (7-18)
[2023-05-15 08:17] LABS: THYROID STIMULATING HORMONE 2.277 uIU/mL (0.358-3.74)
[2023-05-15 13:14] LABS: EOSINOPHILS % (MANUAL) 12 % (0-4); LYMPHOCYTES % (MANUAL) 17 % (16-48); MONOCYTES % (MANUAL) 10 % (0-11.0); NEUTROPHILS % (MANUAL) 61 (42-76); PLATELET ESTIMATE DECREASED
[2023-05-15 13:15] LABS: ANISOCYTOSIS 2+
[2023-05-15 15:44] VITALS: BP 161/79; TEMP 97.9; O2SAT 100
[2023-05-15 20:00] VITALS: BP 154/61; TEMP 98.6; O2SAT 97
[2023-05-15] MEDS: SACUBITRIL/VALSARTAN 1 EACH TABLET PO SCH (21:34)
[2023-05-16] VITALS: BP 108/50; TEMP 98.4
[2023-05-16 08:00] VITALS: BP 127/60; TEMP 98.6; O2SAT 97
[2023-05-16 12:00] VITALS: BP 107/57; TEMP 98.1; O2SAT 99
[2023-05-16 16:00] VITALS: BP 101/60; TEMP 99; O2SAT 98
[2023-05-16 17:25] VITALS: BP 90/60
== END 2023-05-16 17:50 | disposition home health service (06) | DRG 640 ==
LOC: ER 22:20 → TELE 05-14 01:43
PROVIDERS: ADMIT Nurse Practitioner Acute Care; ATTEND Nurse Practitioner Acute Care
PROC: 5A1D70Z Performance of Urinary Filtration, Intermittent, Less than 6 Hours Per Day (ICD-10-PCS; principal; 2023-05-16)
DX: E87.8 Other disorders of electrolyte and fluid balance, not elsewhere classified (principal); I21.4 Non-ST elevation (NSTEMI) myocardial infarction; N18.6 End stage renal disease; I13.2 Hypertensive heart and chronic kidney disease with heart failure and with stage 5 chronic kidney disease, or end stage renal disease; I25.110 Atherosclerotic heart disease of native coronary artery with unstable angina pectoris; E44.1 Mild protein-calorie malnutrition; I50.9 Heart failure, unspecified; Z99.2 Dependence on renal dialysis; Z95.5 Presence of coronary angioplasty implant and graft; E11.22 Type 2 diabetes mellitus with diabetic chronic kidney disease; Z90.49 Acquired absence of other specified parts of digestive tract; Z79.51 Long term (current) use of inhaled steroids; Z79.82 Long term (current) use of aspirin; Z79.899 Other long term (current) drug therapy; D53.9 Nutritional anemia, unspecified; D63.1 Anemia in chronic kidney disease; D69.6 Thrombocytopenia, unspecified; E78.5 Hyperlipidemia, unspecified; I25.2 Old myocardial infarction; Z79.02 Long term (current) use of antithrombotics/antiplatelets; Z79.84 Long term (current) use of oral hypoglycemic drugs; N25.0 Renal osteodystrophy
CPT/HCPCS: 36415; 70450-TC; 71045-TC; 80048-TC; 80053-TC; 82962-TC; 83605-TC; 83735-TC; 84100-TC; 84443-TC; 84484-TC; 85025-TC; 85610-TC; 85730-TC; 90935-TC; 93307-TC; A4223; G0378; J0696; J1644; J1815; J7030; J7050; J7060

== ENCOUNTER 2023-09-12 12:36 | Inpatient (IN) | payer MEDICARE, OTHER ==
[~2023-09-12] VITALS: Ht 165.1 cm; Wt 53.6 kg
[2023-09-12 13:48] LABS: BASOPHILS % (AUTO) 0.5 % (0.0-2.0); EOSINOPHILS # (AUTO) 0.7 K/uL (0.0-0.7); EOSINOPHILS % (AUTO) 14.3 % (0.0-6.0); HEMATOCRIT 31 % (33-45); HEMOGLOBIN 10.5 g/dL (11.5-14.8); LYMPHOCYTES # (AUTO) 0.7 K/uL (0.8-4.8); LYMPHOCYTES % (AUTO) 14.2 % (20.0-44.0); MEAN CORPUSCULAR HEMOGLOBIN 35 PG (26.0-33.0); MEAN CORPUSCULAR HGB CONC 34 g/dl (31.0-36.0); MEAN CORPUSCULAR VOLUME 105 fL (82-100); MONOCYTES # (AUTO) 0.6 K/uL (0.1-1.30); MONOCYTES % (AUTO) 12.1 % (2.0-12.0); NEUTROPHILS # (AUTO) 2.8 K/uL (1.8-8.9); NEUTROPHILS % (AUTO) 58.9 % (43.0-81.0); PLATELET COUNT (AUTO) 95 K/uL (150-450); RED BLOOD CELL COUNT(AUTO) 2.98 MIL/uL (4.0-5.2); RED CELL DISTRIBUTION WIDTH 14.1 % (11.5-15.0); WHITE BLOOD COUNT (AUTO) 4.8 K/uL (4.3-11.0)
[2023-09-12 14:02] LABS: CALCIUM, SERUM 8.3 mg/dL (8.5-10.1); CARBON DIOXIDE 30 mmol/L (21-32); CHLORIDE 102 mmol/L (98-107); CREATININE 2.1 mg/dL (0.6-1.3); GLUCOSE 98 mg/dL (74-106); INR 0.94 (0.91-1.10); PARTIAL THROMBOPLASTIN TIME 34.2 SEC (24.3-34.3); POTASSIUM 4.1 mmol/L (3.5-5.1); SODIUM SERUM 139 mmol/L (136-145); UREA NITROGEN, BLOOD 20 mg/dL (7-18)
[2023-09-12 14:06] LABS: ALANINE AMINOTRANSFERASE 23 U/L (12-78); ALBUMIN 3.3 g/dL (3.4-5.0); ALKALINE PHOSPHATASE 101 U/L (46-116); ASPARTATE AMINOTRANSFERASE 20 U/L (15-37); BILIRUBIN,DIRECT 0.3 mg/dL (0.0-0.2); BILIRUBIN,TOTAL 0.9 mg/dL (0.2-1.0); TOTAL PROTEIN, SERUM 7.7 g/dL (6.4-8.2)
[2023-09-12 14:40] LABS: LACTIC ACID 0.7 mmol/L (0.4-2.0)
[2023-09-12] MEDS ORDERED: ASPIRIN 325 MG TABLET ONE (14:40)
[2023-09-12] MEDS: ASPIRIN 325 MG TABLET PO ONE (14:45)
[2023-09-12] MEDS ORDERED: ACETAMINOPHEN 325 MG TABLET PO PRN (15:00)
[2023-09-12] MEDS ORDERED: Z GUARD REMEDY 4 OZ OINT TP PRN (15:00)
[2023-09-12] MEDS ORDERED: MAGNESIUM HYDROXIDE 30 ML UDC PO PRN (15:00)
[2023-09-12] MEDS ORDERED: MAG HYDROX/AL HYDROX/SIMETH 30 ML UDC PO PRN (15:00)
[2023-09-12 15:20] LABS: EOSINOPHILS % (MANUAL) 17 % (0-4); LYMPHOCYTES % (MANUAL) 12 % (16-48); MONOCYTES % (MANUAL) 7 % (0-11.0); NEUTROPHILS % (MANUAL) 64 (42-76)
[2023-09-12 15:21] LABS: ANISOCYTOSIS 1+; PLATELET ESTIMATE DECREASED; STOMATOCYTES 1+
[2023-09-12] MEDS ORDERED: ONDANSETRON HCL/PF 4 MG/2 ML VIAL ONE (15:44)
[2023-09-12] MEDS: ONDANSETRON HCL/PF 4 MG/2 ML VIAL IVP PRN (15:47)
[2023-09-12 17:00] VITALS: BP 188/80; TEMP 98.4
[2023-09-12] MEDS: MIDODRINE HCL (5MG) 5 MG TABLET PO SCH ×2 (17:00→23:51)
[2023-09-12] MEDS: SEVELAMER CARBONATE 800 MG TABLET PO SCH (17:53)
[2023-09-12] MEDS: CHOLECALCIFEROL 1,000 UNIT TABLET (VIT D3) PO SCH (17:53)
[2023-09-12] MEDS: MINOXIDIL (2.5MG) 2.5 MG TABLET PO SCH (17:54)
[2023-09-12] MEDS: TICAGRELOR 90 MG TABLET PO SCH (17:56)
[2023-09-12 20:00] VITALS: BP 159/60; TEMP 97.8; O2SAT 99
[2023-09-12 21:00] VITALS: BP_SYST 136; BP_SYST 149; BP_DIAS 64; BP_DIAS 65
[2023-09-12] MEDS: MIRTAZAPINE 15 MG TABLET PO SCH (21:07)
[2023-09-12] MEDS: ATORVASTATIN 40 MG TABLET PO SCH (21:07)
[2023-09-12] MEDS: SENNOSIDES 8.6 MG TABLET PO SCH (21:07)
[2023-09-12] MEDS: CARVEDILOL 12.5 MG TABLET PO SCH (21:07)
[2023-09-12] MEDS: ISOSORBIDE MONONITRATE (30MG) 30 MG TAB.SR.24H PO SCH (21:08)
[2023-09-12] MEDS: SACUBITRIL/VALSARTAN 24/26MG TABLET PO SCH (21:08)
[2023-09-13] VITALS (40 sets, daily range): BP systolic 76–192; BP diastolic 35–81; TEMP 97.4–98.4; O2SAT 95–100
[2023-09-13] MEDS ORDERED: DOPamine 400 MG in IV D5W 250 ML IV PRN
[2023-09-13] MEDS: NITROGLYCERIN PACKET 1 GM PACKET ONE ×2 (00:14)
[2023-09-13] MEDS: ATROPINE SULFATE 1 MG/10 ML DISP.SYRIN ONE (00:14)
[2023-09-13] MEDS: NITROGLYCERIN 30 GM TUBE TP ONE (00:16)
[2023-09-13] MEDS: NOREPINEPHRINE 32 MG in IV NS 0.9% 218 ML IV PRN (01:38)
[2023-09-13] MEDS: NOREPINEPHRINE 4 MG/4 ML AMPUL IV ONE (01:54)
[2023-09-13 04:00] LABS: BASOPHILS # (AUTO) 0.1 K/uL (0.0-0.2); BASOPHILS % (AUTO) 1.2 % (0.0-2.0); EOSINOPHILS # (AUTO) 0.3 K/uL (0.0-0.7); EOSINOPHILS % (AUTO) 7.2 % (0.0-6.0); HEMATOCRIT 29 % (33-45); LYMPHOCYTES # (AUTO) 0.7 K/uL (0.8-4.8); LYMPHOCYTES % (AUTO) 15.3 % (20.0-44.0); MEAN CORPUSCULAR HEMOGLOBIN 36 PG (26.0-33.0); MEAN CORPUSCULAR HGB CONC 35 g/dl (31.0-36.0); MEAN CORPUSCULAR VOLUME 106 fL (82-100); MONOCYTES # (AUTO) 0.4 K/uL (0.1-1.30); MONOCYTES % (AUTO) 8.2 % (2.0-12.0); NEUTROPHILS # (AUTO) 3.3 K/uL (1.8-8.9); NEUTROPHILS % (AUTO) 68.1 % (43.0-81.0); PLATELET COUNT (AUTO) 99 K/uL (150-450); RED BLOOD CELL COUNT(AUTO) 2.74 MIL/uL (4.0-5.2); RED CELL DISTRIBUTION WIDTH 13.8 % (11.5-15.0); WHITE BLOOD COUNT (AUTO) 4.8 K/uL (4.3-11.0)
[2023-09-13 04:39] LABS: CALCIUM, SERUM 8.2 mg/dL (8.5-10.1); CARBON DIOXIDE 29 mmol/L (21-32); CHLORIDE 102 mmol/L (98-107); CREATININE 3.4 mg/dL (0.6-1.3); GLUCOSE 130 mg/dL (74-106); MAGNESIUM 2.1 mg/dL (1.8-2.4); PHOSPHORUS 4.3 mg/dL (2.5-4.9); POTASSIUM 4.7 mmol/L (3.5-5.1); SODIUM SERUM 139 mmol/L (136-145); UREA NITROGEN, BLOOD 29 mg/dL (7-18)
[2023-09-13 04:46] LABS: CHOLESTEROL 114 mg/dL (<200); HDL CHOLESTEROL 69 mg/dL (40-60); LDL 34 mg/dL (0-99); TRIGLYCERIDES 81 mg/dL (30-150)
[2023-09-13] MEDS: ALLOPURINOL 100 MG TABLET PO SCH (08:26)
[2023-09-13] MEDS: LINAGLIPTIN 5 MG TABLET PO SCH (08:27)
[2023-09-13] MEDS: CYANOCOBALAMIN 500 MCG TABLET PO SCH (08:27)
[2023-09-13] MEDS: VIT B CMPLX 3/FA/VIT C/BIOTIN 1 TAB TABLET PO SCH (08:27)
[2023-09-13] MEDS: FERROUS SULFATE (325 MG) 325 MG/TAB TABLET PO SCH (08:27)
[2023-09-13] MEDS: ASPIRIN EC 81 MG TABLET.DR PO SCH (08:27)
[2023-09-13] MEDS ORDERED: ASPIRIN 81 MG TAB.CHEW PO SCH (09:00)
[2023-09-13] MEDS: MIDODRINE HCL (5MG) 5 MG TABLET PO SCH (13:00)
[2023-09-14] VITALS (34 sets, daily range): BP systolic 87–149; BP diastolic 36–67; TEMP 97.2–98.5; O2SAT 97–100
[2023-09-14 04:19] LABS: BASOPHILS # (AUTO) 0.1 K/uL (0.0-0.2); BASOPHILS % (AUTO) 0.9 % (0.0-2.0); EOSINOPHILS # (AUTO) 0.9 K/uL (0.0-0.7); EOSINOPHILS % (AUTO) 14.1 % (0.0-6.0); HEMATOCRIT 29 % (33-45); HEMOGLOBIN 9.7 g/dL (11.5-14.8); LYMPHOCYTES # (AUTO) 0.9 K/uL (0.8-4.8); MEAN CORPUSCULAR HEMOGLOBIN 36 PG (26.0-33.0); MEAN CORPUSCULAR HGB CONC 34 g/dl (31.0-36.0); MEAN CORPUSCULAR VOLUME 105 fL (82-100); MONOCYTES # (AUTO) 0.8 K/uL (0.1-1.30); MONOCYTES % (AUTO) 12.2 % (2.0-12.0); NEUTROPHILS # (AUTO) 3.9 K/uL (1.8-8.9); NEUTROPHILS % (AUTO) 58.8 % (43.0-81.0); PLATELET COUNT (AUTO) 130 K/uL (150-450); RED BLOOD CELL COUNT(AUTO) 2.72 MIL/uL (4.0-5.2); RED CELL DISTRIBUTION WIDTH 13.7 % (11.5-15.0); WHITE BLOOD COUNT (AUTO) 6.6 K/uL (4.3-11.0)
[2023-09-14 04:28] LABS: INR 0.99 (0.91-1.10); PROTHROMBIN TIME 10.5 SECS (9.2-11.1)
[2023-09-14 04:31] LABS: CALCIUM, SERUM 8.2 mg/dL (8.5-10.1); CARBON DIOXIDE 34 mmol/L (21-32); CHLORIDE 101 mmol/L (98-107); CREATININE 4.6 mg/dL (0.6-1.3); GLUCOSE 87 mg/dL (74-106); POTASSIUM 5.1 mmol/L (3.5-5.1); SODIUM SERUM 140 mmol/L (136-145); UREA NITROGEN, BLOOD 47 mg/dL (7-18)
[2023-09-14] MEDS ORDERED: IV NS 0.9% 500 ML IV ONE (07:29)
[2023-09-14] MEDS ORDERED: IODIXANOL 150 ML IV ONE (07:29)
[2023-09-14] MEDS ORDERED: IV SET PRIMARY PUMP SET 1 EA INFUS.SET MC ONE (07:29)
[2023-09-14] MEDS ORDERED: LIDOCAINE HCL/MPF 1% 30 ML VIAL IJ ONE (07:30)
[2023-09-14] MEDS ORDERED: FENTANYL PF 100MCG/2ML AMPUL ONE (08:16)
[2023-09-14] MEDS ORDERED: MIDAZOLAM HCL 2 MG/2ML VIAL ONE (08:16)
[2023-09-15] VITALS (20 sets, daily range): BP systolic 84–152; BP diastolic 34–77; TEMP 97.8–98.4; O2SAT 92–100
[2023-09-16] VITALS (7 sets, daily range): BP systolic 101–169; BP diastolic 65–89; TEMP 97.9–209.1; O2SAT 97–100
== END 2023-09-16 19:00 | disposition home health service (06) | DRG 280 ==
LOC: ER 12:41 → MED 15:37 → TELE 17:21 → ICU 23:52 → TELE 09-15 17:03
PROVIDERS: ADMIT Nurse Practitioner Acute Care; ATTEND Internal Medicine
PROC: 4A023N7 Measurement of Cardiac Sampling and Pressure, Left Heart, Percutaneous Approach (ICD-10-PCS; principal; 2023-09-14)
PROC: B211YZZ Fluoroscopy of Multiple Coronary Arteries using Other Contrast (ICD-10-PCS; 2023-09-14)
PROC: B41FYZZ Fluoroscopy of Right Lower Extremity Arteries using Other Contrast (ICD-10-PCS; 2023-09-14)
PROC: 5A1D70Z Performance of Urinary Filtration, Intermittent, Less than 6 Hours Per Day (ICD-10-PCS; 2023-09-14)
DX: I25.110 Atherosclerotic heart disease of native coronary artery with unstable angina pectoris (principal); N18.6 End stage renal disease; I21.A1 Myocardial infarction type 2; I50.22 Chronic systolic (congestive) heart failure; I13.2 Hypertensive heart and chronic kidney disease with heart failure and with stage 5 chronic kidney disease, or end stage renal disease; E44.1 Mild protein-calorie malnutrition; Z68.1 Body mass index [BMI] 19.9 or less, adult; D69.6 Thrombocytopenia, unspecified; D63.1 Anemia in chronic kidney disease; E11.22 Type 2 diabetes mellitus with diabetic chronic kidney disease; E78.5 Hyperlipidemia, unspecified; E88.09 Other disorders of plasma-protein metabolism, not elsewhere classified; I25.2 Old myocardial infarction; Z79.84 Long term (current) use of oral hypoglycemic drugs; Z99.2 Dependence on renal dialysis; Z86.15 Personal history of latent tuberculosis infection; Z90.49 Acquired absence of other specified parts of digestive tract; Z95.5 Presence of coronary angioplasty implant and graft; N25.0 Renal osteodystrophy; R53.1 Weakness; I95.2 Hypotension due to drugs; T50.905A Adverse effect of unspecified drugs, medicaments and biological substances, initial encounter; Y92.009 Unspecified place in unspecified non-institutional (private) residence as the place of occurrence of the external cause
CPT/HCPCS: 36415; 70450-TC; 71045-TC; 80048-TC; 80061-TC; 80076-TC; 82962-TC; 83605-TC; 83735-TC; 84100-TC; 84484-TC; 85025-TC; 85730-TC; 87040-TC; 90935-TC; 94799-TC; A4223; G0378; J0461; J1644; J2250; J2405; J3010; J3490; J7030; J7040; J7050; Q9967

== ENCOUNTER 2024-05-19 19:39 | Emergency (ER) | payer MEDICARE, OTHER ==
[~2024-05-19] VITALS: Ht 157.5 cm; Wt 52.2 kg
[~2024-05-19 19:39] MED LIST changes: -ALBU2.5V13 IH; -AMIN30LI2 PO; -CEFT1FRO2 IV; -DOCU100T2 PO; -DOXA1TAB4 PO; -IPRA3AMP23 IH; -ISON300T27 PO; -MINO2.5T PO; -MIRT-90 PO; -NUT.237L67 PO; -PANT40TA49 PO; -PYRI-6 PO; -Prosource PO; -RIFA300C4 PO
[2024-05-19 21:21] LABS: BASOPHILS % (AUTO) 0.6 % (0.0-2.0); EOSINOPHILS # (AUTO) 0.6 K/uL (0.0-0.7); EOSINOPHILS % (AUTO) 10.7 % (0.0-6.0); HEMATOCRIT 25 % (33-45); HEMOGLOBIN 8.3 g/dL (11.5-14.8); LYMPHOCYTES # (AUTO) 0.9 K/uL (0.8-4.8); LYMPHOCYTES % (AUTO) 17.2 % (20.0-44.0); MEAN CORPUSCULAR HEMOGLOBIN 34 PG (26.0-33.0); MEAN CORPUSCULAR HGB CONC 34 g/dl (31.0-36.0); MEAN CORPUSCULAR VOLUME 100 fL (82-100); MONOCYTES # (AUTO) 0.7 K/uL (0.1-1.30); MONOCYTES % (AUTO) 12.4 % (2.0-12.0); NEUTROPHILS # (AUTO) 3.2 K/uL (1.8-8.9); NEUTROPHILS % (AUTO) 59.1 % (43.0-81.0); PLATELET COUNT (AUTO) 165 K/uL (150-450); RED BLOOD CELL COUNT(AUTO) 2.47 MIL/uL (4.0-5.2); RED CELL DISTRIBUTION WIDTH 14.3 % (11.5-15.0); WHITE BLOOD COUNT (AUTO) 5.4 K/uL (4.3-11.0)
[2024-05-19 21:34] LABS: CALCIUM, SERUM 8.9 mg/dL (8.5-10.1); CREATININE 2.3 mg/dL (0.6-1.3); POTASSIUM 3.6 mmol/L (3.5-5.1)
[2024-05-19 21:40] LABS: ALBUMIN 3.2 g/dL (3.4-5.0); BILIRUBIN,TOTAL 0.3 mg/dL (0.2-1.0); TOTAL PROTEIN, SERUM 7.1 g/dL (6.4-8.2)
[2024-05-19 21:48] LABS: INR 0.99 (0.91-1.10); PROTHROMBIN TIME 10.5 SECS (9.2-11.1)
[2024-05-19 22:02] LABS: APPEARANCE,URINE SLIGHTLY CLOUDY (CLEAR); BILIRUBIN,URINE NEGATIVE (NEGATIVE); BLOOD, URINE TRACE-INTA Ery/uL (NEGATIVE); COLOR,URINE YELLOW (YELLOW); KETONES,URINE NEGATIVE (NEGATIVE); LEUKOCYTE ESTERASE ,URINE TRACE (NEGATIVE); NITRITE, URINE NEGATIVE (NEGATIVE); PH,URINE 8.5 (5.0-8.0); PROTEIN,URINE 3+ mg/dl (NEGATIVE); UGLUCOSE 1+ mg/dL (NEGATIVE); UROBILINOGEN,URINE 0.2 EU/dL (0.2)
[2024-05-19 22:11] LABS: ADD URINE CULTURE NO; BACTERIA,URINE None seen /HPF (None Seen); SQUAMOUS EPITHELIAL CELL,UR 0-2 /HPF (None Seen)
[2024-05-19 22:15] LABS: ANISOCYTOSIS 1+; EOSINOPHILS % (MANUAL) 3 % (0-4); LYMPHOCYTES % (MANUAL) 19 % (16-48); MONOCYTES % (MANUAL) 6 % (0-11.0); NEUTROPHILS % (MANUAL) 72 (42-76); PLATELET ESTIMATE ADEQUATE
[2024-05-19] MEDS: CEFTRIAXONE 1GM BAG (ER ONLY) 1 GM/50 ML PIGGYBACK IV ONE (22:30)
[2024-05-20 04:10] VITALS: BP 130/78; TEMP 97.8; O2SAT 98
== END 2024-05-20 04:10 | disposition home or self-care (01) ==
LOC: ER 19:50
DX: R53.1 Weakness (principal); R53.83 Other fatigue; D64.9 Anemia, unspecified; I12.0 Hypertensive chronic kidney disease with stage 5 chronic kidney disease or end stage renal disease; E11.22 Type 2 diabetes mellitus with diabetic chronic kidney disease; N18.6 End stage renal disease; Z79.02 Long term (current) use of antithrombotics/antiplatelets; Z79.82 Long term (current) use of aspirin; Z79.84 Long term (current) use of oral hypoglycemic drugs; Z79.899 Other long term (current) drug therapy; Z90.49 Acquired absence of other specified parts of digestive tract; Z99.2 Dependence on renal dialysis
CPT/HCPCS: 99285; 96374; 36430; 93005; 71045; 85025; 85610; 85007; 81001; 36415; 80053; 84484 ×2; 86850; 86923; J0696; J7050; P9016